=== PATIENT | male | born 1935 | race Caucasian/White ===

== ENCOUNTER 2022-06-04 14:02 | Outpatient (CLI) | payer MEDICARE, BC, SELFPAY ==
[2022-06-04 15:08] LABS: Prothrombin Time 22.2 Seconds
== END 2022-06-04 14:03 | disposition home or self-care (01) ==
PROVIDERS: PCP Internal Medicine; Visit Provider Internal Medicine
DX: Z79.01 Long term (current) use of anticoagulants (principal)
CPT/HCPCS: 85610

== ENCOUNTER 2022-08-21 07:12 | Outpatient (CLI) | payer MEDICARE, BC, SELFPAY | END 2022-08-21 07:13 | disposition home or self-care (01) | LOC: AMB 08-22 12:36 | PROVIDERS: PCP Internal Medicine; Visit Provider Family Medicine | DX: S09.90XA Unspecified injury of head, initial encounter (principal); W18.30XA Fall on same level, unspecified, initial encounter; Y92.003 Bedroom of unspecified non-institutional (private) residence as the place of occurrence of the external cause | CPT/HCPCS: A0425; A0427 ==

== ENCOUNTER 2022-08-21 07:43 | Emergency (ER) | payer MEDICARE, BC, SELFPAY ==
[2022-08-21] VITALS (24 sets, daily range): BP systolic 125–152; BP diastolic 72–95; PULSE 54–79; RESP 18; TEMP 36; O2SAT 94–100
--- NOTE | 2022-08-21 | CT_ITS ---
Patient: SARAY MENENDEZ Facility:?[facility] Patient ID:?[id number] Site Patient ID:?[id number]. Site :?[id number] Study:?CT-Head W/O - CODE TRAUMA-08/21/2022 7:57:49 AM Ordering Physician:Fady Mancuso Final Report: INDICATION: Fall. TECHNIQUE: CT head without contrast. COMPARISON: 01/06/2021. FINDINGS: CSF spaces: Within normal limits for age. Brain parenchyma and extra-axial spaces: The handley-white differentiation is normal. No sign of mass, hemorrhage, or midline shift. No extra-axial fluid collection. Skull base and calvarium: The visualized paranasal sinuses and mastoid air cells demonstrate no acute or significant findings. The visualized orbits are grossly unremarkable. No skull fractures. IMPRESSION: No acute intracranial abnormality. Please note that all CT scans at this facility use dose modulation, iterative reconstruction, and/or weight-based dosing when appropriate to reduce radiation dose to as low as reasonably achievable. Dictated by Saray Eugene MD @ 08/21/2022 8:08:31 AM Signed by:?Saray Eugene MD @08/21/2022 8:08:31 AM (Electronic Signature)
--- NOTE | 2022-08-21 | CT_ITS ---
Patient: SARAY MENENDEZ Facility:?[facility] Patient ID:?[id number] Site Patient ID:?[id number]. Site :?[id number] Study:?CT-Spine Cervical W/O - CODE TRAUMA-08/21/2022 7:58:07 AM Ordering Physician:Fady Mancuso Final Report: INDICATION: Trauma. TECHNIQUE: CT cervical spine without contrast. COMPARISON: None. FINDINGS: Vertebrae: Trace degenerative C4 anterolisthesis. There are no fractures or suspicious bony lesions. Discs and facet joints: There are diffuse degenerative changes in the disc spaces and facet joints. Findings include advanced left-sided facet arthrosis at CT C3, C3-4 and C4-5 and Extraspinal findings: No abnormal prevertebral soft tissue swelling. Carotid atherosclerosis. Biapical lung scarring. IMPRESSION: 1. No sign of acute injury. 2. Multilevel degenerative spondylosis. Please note that all CT scans at this facility use dose modulation, iterative reconstruction, and/or weight-based dosing when appropriate to reduce radiation dose to as low as reasonably achievable. Dictated by Saray Eugene MD @ 08/21/2022 8:13:46 AM Signed by:?Saray Eugene MD @08/21/2022 8:13:46 AM (Electronic Signature)
--- NOTE | 2022-08-21 08:05 | ED.SYNCOPE ---
HPI - Syncope General Date Seen: 08/21/22 <Bartolome Carvajal MD - Last Filed: 08/21/22 08:20> Chief Complaint: Syncope/Fainted <Bartolome Carvajal MD - Last Filed: 08/21/22 08:20> Stated Complaint: Fall <Bartolome Carvajal MD - Last Filed: 08/21/22 08:20> Time Seen by Provider: 08/21/22 08:05 <Bartolome Carvajal MD - Last Filed: 08/21/22 08:20> Source: patient <Bartolome Carvajal MD - Last Filed: 08/21/22 08:20> Mode of arrival: EMS <Bartolome Carvajal MD - Last Filed: 08/21/22 08:20> Limitations: no limitations <Bartolome Carvajal MD - Last Filed: 08/21/22 08:20> History of Present Illness HPI narrative: Patient is an 87-year-old gentleman who was brought in as are red trauma, he was standing at home helping his make the bed, when he became dizzy and passed out falling backwards hitting his head, there is loss of conscious for approximately a few seconds, he then came to, he did complain of a headache, and also some mild neck discomfort. He is brought in by EMS with the neck protection, no complaints of nausea vomiting he did not have chest pain there is no feeling of his heart racing or going to slow with this. Otherwise felt fine, no history of any sickness, diarrhea dysuria frequency. 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 [employer], <Bartolome Carvajal MD - Last Filed: 08/21/22 08:20> MD complaint: loss of consciousness <Bartolome Carvajal MD - Last Filed: 08/21/22 08:20> Onset (ago): minute(s) <Bartolome Carvajal MD - Last Filed: 08/21/22 08:20> Duration of episode: 5 <Bartolome Carvajal MD - Last Filed: 08/21/22 08:20> -: second(s) <Bartolome Carvajal MD - Last Filed: 08/21/22 08:20> Prodromal symptoms: none <Bartolome Carvajal MD - Last Filed: 08/21/22 08:20> Witnessed: Yes - by Bystander <Bartolome Carvajal MD - Last Filed: 08/21/22 08:20> Context: standing up <Bartolome Carvajal MD - Last Filed: 08/21/22 08:20> Injuries sustained associated with event: neck and head <Bartolome Carvajal MD - Last Filed: 08/21/22 08:20> Current symptoms: headache <Bartolome Carvajal MD - Last Filed: 08/21/22 08:20> Treatments prior to arrival: none <Bartolome Carvajal MD - Last Filed: 08/21/22 08:20> Related Data Home Medications: Previous Rx's Medication Instructions Recorded warfarin 5 mg tablet 5 mg PO QDAY Atrial Fibrillation 03/27/22 #90 tabs metoprolol succinate 25 mg 25 mg PO QDAY #90 tabs 06/17/22 tablet,extended release 24 hr tamsulosin 0.4 mg capsule 0.4 mg PO QDAY #90 caps 07/11/22 <Bartolome Carvajal MD - Last Filed: 08/21/22 08:20> Allergies/Adverse Reactions: Allergies Allergy/AdvReac Type Severity Reaction Status Date / Time No Known Drug Allergies Allergy Verified 08/21/22 08:10 <Bartolome Carvajal MD - Last Filed: 08/21/22 08:20> Review of Systems Status of ROS: Reports: 10 or more systems reviewed and unremarkable except as noted in History and below <Bartolome Carvajal MD - Last Filed: 08/21/22 08:20> [facility] Medical History: Medical History (Updated 08/21/22 @ 09:50 by Amanda Randall MD) Atrial fibrillation <Bartolome Carvajal MD - Last Filed: 08/21/22 08:20> Surgical History: Surgical History (Updated 08/21/22 @ 09:34 by Cinthya Jordan RN) History of total replacement of both hip joints <Bartolome Carvajal MD - Last Filed: 08/21/22 08:20> Social History: Social History Smoking Status: Former smoker Do you use any of these nicotine containing products: None How often do you have a drink containing alcohol: 4 or more times a week How many standard drinks containing alcohol do you have on a typical day: 3 or 4 How often do you have six or more drinks on one occasion: Daily or almost daily AUDIT-C Alcohol total score: 9 Non-prescribed substance use: denies use <Bartolome Carvajal MD - Last Filed: 08/21/22 08:20> Exam Narrative: Exam Narrative: Patient is seen and stabilization room 1, after being met in the hallway by myself, and sent to the CT scanner. He is alert oriented x3 in no apparent distress, no current complaints, pupils are equal round reactive to light his TMs are normal, his oropharynx is normal, neck has good flexion and extension, no tenderness to palpation over C-spine is collar is removed. Carotid upstrokes are equal bilaterally, heart sounds are normal abdomen is soft there is no guarding, hips have normal range of motion bilaterally with no tenderness to palpation, is able sit up for me is good air entry bilaterally no palpable tenderness noted over his lumbar thoracic or cervical spine. Rhythm seems irregularly irregular consistent with atrial fibrillation. <Bartolome Carvajal MD - Last Filed: 08/21/22 08:20> Const: Vital Signs, click to edit/add: Vital Signs - 24 hr 08/21/22 08:43 08/21/22 08:46 08/21/22 08:50 Temperature Pulse Rate 54 L 63 60 Pulse Rate [Right Pulse Oximeter] Respiratory Rate Blood Pressure 125/72 Blood Pressure [Ri ght Upper Arm] Pulse Oximetry 97 98 97 Oxygen Delivery Me thod 08/21/22 08:52 08/21/22 09:00 08/21/22 09:01 Temperature Pulse Rate 59 L 55 L 58 L Pulse Rate [Right Pulse Oximeter] Respiratory Rate Blood Pressure 131/93 H 137/85 Blood Pressure [Ri ght Upper Arm] Pulse Oximetry 97 100 99 Oxygen Delivery Me thod 08/21/22 09:10 08/21/22 09:12 08/21/22 09:20 Temperature Pulse Rate 67 60 Pulse Rate [Right Pulse Oximeter] Respiratory Rate Blood Pressure 143/85 H Blood Pressure [Ri ght Upper Arm] Pulse Oximetry 97 100 Oxygen Delivery Me thod 08/21/22 09:22 08/21/22 07:43 Temperature 96.8 F L Pulse Rate 65 Pulse Rate [Right Pulse Oximeter] 79 Respiratory Rate 18 Blood Pressure 137/92 H Blood Pressure [Ri ght Upper Arm] 152/83 H Pulse Oximetry 99 98 Oxygen Delivery Me thod Room Air <Bartolome Carvajal MD - Last Filed: 08/21/22 08:20> Vital Signs, click to edit/add: Vital Signs - 24 hr 08/21/22 08:43 08/21/22 08:46 08/21/22 08:50 Temperature Pulse Rate 54 L 63 60 Pulse Rate [Right Pulse Oximeter] Respiratory Rate Blood Pressure 125/72 Blood Pressure [Ri ght Upper Arm] Pulse Oximetry 97 98 97 Oxygen Delivery Me thod 08/21/22 08:52 08/21/22 09:00 08/21/22 09:01 Temperature Pulse Rate 59 L 55 L 58 L Pulse Rate [Right Pulse Oximeter] Respiratory Rate Blood Pressure 131/93 H 137/85 Blood Pressure [Ri ght Upper Arm] Pulse Oximetry 97 100 99 Oxygen Delivery Me thod 08/21/22 09:10 08/21/22 09:12 08/21/22 09:20 Temperature Pulse Rate 67 60 Pulse Rate [Right Pulse Oximeter] Respiratory Rate Blood Pressure 143/85 H Blood Pressure [Ri ght Upper Arm] Pulse Oximetry 97 100 Oxygen Delivery Me thod 08/21/22 09:22 08/21/22 07:43 Temperature 96.8 F L Pulse Rate 65 Pulse Rate [Right Pulse Oximeter] 79 Respiratory Rate 18 Blood Pressure 137/92 H Blood Pressure [Ri ght Upper Arm] 152/83 H Pulse Oximetry 99 98 Oxygen Delivery Me thod Room Air <Amanda Randall MD - Last Filed: 08/21/22 09:50> Documenting provider has reviewed patient's vital signs: yes <Bartolome Carvajal MD - Last Filed: 08/21/22 08:20> Course Course Hospital Course: IV was established, fluids were started. Patient proceeded to head and neck CT, both of which were unremarkable. Labs showed unremarkable CBC with a slightly low hemoglobin at 13.1. INR in the therapeutic range at 2.57. D-dimer slightly abnormal at 0.58. Sodium was low at 129. Remainder of electrolytes and chemistries entirely normal. Normal troponin. EKG showing atrial fibrillation with a pulse of 54. Patient's pulse did fluctuate between 50 and 60 while he was here, with PVCs. Negative COVID, influenza and RSV. Patient remained asymptomatic throughout his workup. He denies having headache or any neurologic deficits. At this time we discussed sending him home with a Holter monitor. There is certainly a possibility that his mouth bradycardia could be contributing to his symptoms. <Bartolome Carvajal MD - Last Filed: 08/21/22 08:20> Vital Signs Vital signs: Initial Vital Signs Temperature 96.8 F L 08/21/22 07:43 Temperature Source Temporal Artery Scan 08/21/22 07:43 Pulse Rate 79 08/21/22 07:43 Respiratory Rate 18 08/21/22 07:43 Blood Pressure 152/83 H 08/21/22 07:43 Blood Pressure Mean 106 08/21/22 07:43 Blood Pressure Position Sitting 08/21/22 07:43 Pulse Oximetry 98 08/21/22 07:43 Oxygen Delivery Method 08/21/22 07:43 Vital Signs Temperature 96.8 F L 08/21/22 07:43 Pulse Rate 79 08/21/22 07:43 Respiratory Rate 18 08/21/22 07:43 Blood Pressure 152/83 H 08/21/22 07:43 Pulse Oximetry 98 08/21/22 07:43 Oxygen Delivery Method 08/21/22 07:43 Temperature 96.8 F L 08/21/22 07:43 Pulse Rate 65 08/21/22 09:22 Respiratory Rate 18 08/21/22 07:43 Blood Pressure 137/92 H 08/21/22 09:22 Pulse Oximetry 99 08/21/22 09:22 Oxygen Delivery Method 08/21/22 07:43 <Bartolome Carvajal MD - Last Filed: 08/21/22 08:20> Initial Vital Signs Temperature 96.8 F L 08/21/22 07:43 Temperature Source Temporal Artery Scan 08/21/22 07:43 Pulse Rate 79 08/21/22 07:43 Respiratory Rate 18 08/21/22 07:43 Blood Pressure 152/83 H 08/21/22 07:43 Blood Pressure Mean 106 08/21/22 07:43 Blood Pressure Position Sitting 08/21/22 07:43 Pulse Oximetry 98 08/21/22 07:43 Oxygen Delivery Method 08/21/22 07:43 Vital Signs Temperature 96.8 F L 08/21/22 07:43 Pulse Rate 79 08/21/22 07:43 Respiratory Rate 18 08/21/22 07:43 Blood Pressure 152/83 H 08/21/22 07:43 Pulse Oximetry 98 08/21/22 07:43 Oxygen Delivery Method 08/21/22 07:43 Temperature 96.8 F L 08/21/22 07:43 Pulse Rate 65 08/21/22 09:22 Respiratory Rate 18 08/21/22 07:43 Blood Pressure 137/92 H 08/21/22 09:22 Pulse Oximetry 99 08/21/22 09:22 Oxygen Delivery Method 08/21/22 07:43 <Amanda Randall MD - Last Filed: 08/21/22 09:50> MDM - Syncope MDM Narrative Medical decision making narrative: Life-threatening differential diagnosis considered include: Cardiac arrhythmia, acute blood loss, and intracranial bleed. Other differential diagnosis include but are not limited to vasovagal syncope, orthostatic syncope, seizure, as well as other etiologies I explained to we will do labs give him some IV fluids, troponin, and do a head and neck CT. He will be signed over to the [facility] ER physician <Bartolome Carvajal MD - Last Filed: 08/21/22 08:20> Life-threatening differential diagnosis considered include: Cardiac arrhythmia, acute blood loss, and intracranial bleed. Other differential diagnosis include but are not limited to vasovagal syncope, orthostatic syncope, seizure, as well as other etiologies I explained to we will do labs give him some IV fluids, troponin, and do a head and neck CT. He will be signed over to the oncoming ER physician At this time patient will be discharged home with a 24 hour Holter. He will follow up with primary care provider early next week. Return to the ER if symptoms recur or he develops new concerning symptoms such as chest pain, shortness of breath, focal neurologic deficits. Patient and were agreeable with everything we discussed and had no other questions. <Amanda Randall MD - Last Filed: 08/21/22 09:50> Medical Records Attestation: I reviewed the patient's medical records. <Bartolome Carvajal MD - Last Filed: 08/21/22 08:20> Lab Data Attestation: I reviewed the patient's lab results. <Amanda Randall MD - Last Filed: 08/21/22 09:50> Labs: Lab Results 08/21/22 08/21/22 08/21/22 Range/Units 08:00 08:00 08:00 WBC 5.16 (4.50-11.00) K/uL RBC 3.99 L (4.30-5.90) m/uL Hgb 13.1 L (13.5-17.5) gm/dL Hct 37.6 (37.0-53.0) % MCV 94 (80-100) fL MCH 33 (26-34) pg MCHC 35 (32-36) gm/dL RDW Coeff of [place] 12.7 (11.5-15.5) % Plt Count 186 (140-440) K/uL Neut % (Auto) 43.4 (42.0-72.0) % Lymph % (Auto) 36.0 (20-44) % [place] % (Auto) 15.9 H (0.0-11.0) % Eos % (Auto) 3.9 (0.0-7.0) % Baso % (Auto) 0.6 (0.0-3.0) % Neut # (Auto) 2.24 (1.7-7.0) K/uL Lymph # (Auto) 1.86 (0.90-2.90) K/uL [place] # (Auto) 0.80 (0.00-0.90) K/UL Eos # (Auto) 0.20 (0.00-0.50) K/uL Baso # (Auto) 0.03 (0.00-0.30) K/uL INR 2.57 H (0.91-1.10) APTT 43 H (23-33) Seconds D-Dimer Quant (PE/DVT) 0.58 H (0.00-0.50) ug/ml Sodium 129 L (135-149) mmol/L Potassium 4.1 (3.6-5.1) mmol/L Chloride 98 (96-114) mmol/L Carbon Dioxide 26 (20-32) mmol/L BUN 15 (7-30) mg/dL Creatinine 0.7 (0.5-1.5) mg/dL Estimated GFR 90 ml/min Glucose 99 (60-115) mg/dL Calcium 9.6 (8.4-10.6) mg/dL Troponin I (0.01-0.04) ng/mL NT-Pro-B Natriuret Pep pg/mL SARS-CoV-2 (PCR) (Negative) Influenza Type A (PCR) (Negative) Influenza Type B (PCR) (Negative) RSV (PCR) (Negative) 08/21/22 08/21/22 Range/Units 08:00 08:20 WBC (4.50-11.00) K/uL RBC (4.30-5.90) m/uL Hgb (13.5-17.5) gm/dL Hct (37.0-53.0) % MCV (80-100) fL MCH (26-34) pg MCHC (32-36) gm/dL RDW Coeff of [place] (11.5-15.5) % Plt Count (140-440) K/uL Neut % (Auto) (42.0-72.0) % Lymph % (Auto) (20-44) % [place] % (Auto) (0.0-11.0) % Eos % (Auto) (0.0-7.0) % Baso % (Auto) (0.0-3.0) % Neut # (Auto) (1.7-7.0) K/uL Lymph # (Auto) (0.90-2.90) K/uL [place] # (Auto) (0.00-0.90) K/UL Eos # (Auto) (0.00-0.50) K/uL Baso # (Auto) (0.00-0.30) K/uL INR (0.91-1.10) APTT (23-33) Seconds D-Dimer Quant (PE/DVT) (0.00-0.50) ug/ml Sodium (135-149) mmol/L Potassium (3.6-5.1) mmol/L Chloride (96-114) mmol/L Carbon Dioxide (20-32) mmol/L BUN (7-30) mg/dL Creatinine (0.5-1.5) mg/dL Estimated GFR ml/min Glucose (60-115) mg/dL Calcium (8.4-10.6) mg/dL Troponin I 0.01 (0.01-0.04) ng/mL NT-Pro-B Natriuret Pep 1220 pg/mL SARS-CoV-2 (PCR) Negative SARS-CoV-2 (Negative) Influenza Type A (PCR) Negative PCR FLU A (Negative) Influenza Type B (PCR) Negative PCR FLU B (Negative) RSV (PCR) Negative PCR RSV (Negative) <Bartolome Carvajal MD - Last Filed: 08/21/22 08:20> Lab Results 08/21/22 08/21/22 08/21/22 Range/Units 08:00 08:00 08:00 WBC 5.16 (4.50-11.00) K/uL RBC 3.99 L (4.30-5.90) m/uL Hgb 13.1 L (13.5-17.5) gm/dL Hct 37.6 (37.0-53.0) % MCV 94 (80-100) fL MCH 33 (26-34) pg MCHC 35 (32-36) gm/dL RDW Coeff of [place] 12.7 (11.5-15.5) % Plt Count 186 (140-440) K/uL Neut % (Auto) 43.4 (42.0-72.0) % Lymph % (Auto) 36.0 (20-44) % [place] % (Auto) 15.9 H (0.0-11.0) % Eos % (Auto) 3.9 (0.0-7.0) % Baso % (Auto) 0.6 (0.0-3.0) % Neut # (Auto) 2.24 (1.7-7.0) K/uL Lymph # (Auto) 1.86 (0.90-2.90) K/uL [place] # (Auto) 0.80 (0.00-0.90) K/UL Eos # (Auto) 0.20 (0.00-0.50) K/uL Baso # (Auto) 0.03 (0.00-0.30) K/uL INR 2.57 H (0.91-1.10) APTT 43 H (23-33) Seconds D-Dimer Quant (PE/DVT) 0.58 H (0.00-0.50) ug/ml Sodium 129 L (135-149) mmol/L Potassium 4.1 (3.6-5.1) mmol/L Chloride 98 (96-114) mmol/L Carbon Dioxide 26 (20-32) mmol/L BUN 15 (7-30) mg/dL Creatinine 0.7 (0.5-1.5) mg/dL Estimated GFR 90 ml/min Glucose 99 (60-115) mg/dL Calcium 9.6 (8.4-10.6) mg/dL Troponin I (0.01-0.04) ng/mL NT-Pro-B Natriuret Pep pg/mL SARS-CoV-2 (PCR) (Negative) Influenza Type A (PCR) (Negative) Influenza Type B (PCR) (Negative) RSV (PCR) (Negative) 08/21/22 08/21/22 Range/Units 08:00 08:20 WBC (4.50-11.00) K/uL RBC (4.30-5.90) m/uL Hgb (13.5-17.5) gm/dL Hct (37.0-53.0) % MCV (80-100) fL MCH (26-34) pg MCHC (32-36) gm/dL RDW Coeff of [place] (11.5-15.5) % Plt Count (140-440) K/uL Neut % (Auto) (42.0-72.0) % Lymph % (Auto) (20-44) % [place] % (Auto) (0.0-11.0) % Eos % (Auto) (0.0-7.0) % Baso % (Auto) (0.0-3.0) % Neut # (Auto) (1.7-7.0) K/uL Lymph # (Auto) (0.90-2.90) K/uL [place] # (Auto) (0.00-0.90) K/UL Eos # (Auto) (0.00-0.50) K/uL Baso # (Auto) (0.00-0.30) K/uL INR (0.91-1.10) APTT (23-33) Seconds D-Dimer Quant (PE/DVT) (0.00-0.50) ug/ml Sodium (135-149) mmol/L Potassium (3.6-5.1) mmol/L Chloride (96-114) mmol/L Carbon Dioxide (20-32) mmol/L BUN (7-30) mg/dL Creatinine (0.5-1.5) mg/dL Estimated GFR ml/min Glucose (60-115) mg/dL Calcium (8.4-10.6) mg/dL Troponin I 0.01 (0.01-0.04) ng/mL NT-Pro-B Natriuret Pep 1220 pg/mL SARS-CoV-2 (PCR) Negative SARS-CoV-2 (Negative) Influenza Type A (PCR) Negative PCR FLU A (Negative) Influenza Type B (PCR) Negative PCR FLU B (Negative) RSV (PCR) Negative PCR RSV (Negative) <Amanda Randall MD - Last Filed: 08/21/22 09:50> Imaging Data CT scan - head: Attestation: I have reviewed the pertinent imaging results. <Amanda Randall MD - Last Filed: 08/21/22 09:50> Radiologist's impression: CT head without contrast. COMPARISON: 01/06/2021. FINDINGS: CSF spaces: Within normal limits for age. Brain parenchyma and extra-axial spaces: The handley-white differentiation is normal. No sign of mass, hemorrhage, or midline shift. No extra-axial fluid collection. Skull base and calvarium: The visualized paranasal sinuses and mastoid air cells demonstrate no acute or significant findings. The visualized orbits are grossly unremarkable. No skull fractures. IMPRESSION: No acute intracranial abnormality. <Amanda Randall MD - Last Filed: 08/21/22 09:50> CT cervical spine: Attestation: I have reviewed the pertinent imaging results. <Amanda Randall MD - Last Filed: 08/21/22 09:50> Radiologist's impression: CT cervical spine without contrast. COMPARISON: None. FINDINGS: Vertebrae: Trace degenerative C4 anterolisthesis. There are no fractures or suspicious bony lesions. Discs and facet joints: There are diffuse degenerative changes in the disc spaces and facet joints. Findings include advanced left-sided facet arthrosis at CT C3, C3-4 and C4-5 and Extraspinal findings: No abnormal prevertebral soft tissue swelling. Carotid atherosclerosis. Biapical lung scarring. IMPRESSION: 1. No sign of acute injury. 2. Multilevel degenerative spondylosis. <Amanda Randall MD - Last Filed: 08/21/22 09:50> ECG Data Attestation: I personally reviewed and interpreted this ECG as follows: <Bartolome Carvajal MD - Last Filed: 08/21/22 08:20> ECG interpretation date: 08/21/22 <Bartolome Carvajal MD - Last Filed: 08/21/22 08:20> Prior ECG tracings: not available for review <Bartolome Carvajal MD - Last Filed: 08/21/22 08:20> Interpretation: EKG shows atrial fibrillation with ventricular rate of 54, QRS is 108 milliseconds, QT is [address] wave changes notable. <Bartolome Carvajal MD - Last Filed: 08/21/22 08:20> Discharge Plan Discharge Clinical Impression: Syncope <Bartolome Carvajal MD - Last Filed: 08/21/22 08:20> Condition: Stable <Bartolome Carvajal MD - Last Filed: 08/21/22 08:20> Additional Instructions: You will be sent home today with a 24 hour heart monitor. You should follow-up with your primary care provider early next week to go over the results of your heart monitor. Over the weekend, I would recommend you cut your metoprolol dose in half. Return to the ER if you develop chest pain, shortness of breath, vomiting, slurred speech or weakness of any extremity. <Bartolome Carvajal MD - Last Filed: 08/21/22 08:20> Prescriptions: No Action warfarin 5 mg tablet 5 mg PO QDAY Qty: 90 3RF Protocol: Dose Management Condition: Thursday Dose/Route: 5 % Instruction: 1 x 5 % tablet Condition: Thursday Dose/Route: 5 % Instruction: 1 x 5 % tablet Condition: Thursday Dose/Route: 5 % Instruction: 1 x 5 % tablet Condition: Thursday Dose/Route: 5 % Instruction: 1 x 5 % tablet Condition: Dose/Route: 5 % Instruction: 1 x 5 % tablet Condition: Thursday Dose/Route: 5 % Instruction: 1 x 5 % tablet Condition: Thursday Dose/Route: 5 % Instruction: 1 x 5 % tablet Protocol Text: Adjustment Start Date: Thursday07/22/22 INR Value: 2.7 INR Date: 07/22/22 Recheck Date: 08/19/22 metoprolol succinate 25 mg tablet extended release 24 hr 25 mg PO QDAY Qty: 90 1RF tamsulosin 0.4 mg capsule 0.4 mg PO QDAY Qty: 90 1RF <Bartolome Carvajal MD - Last Filed: 08/21/22 08:20> Follow Up/Referrals: Raudel Rodas MD [Primary Care Provider] - <Bartolome Carvajal MD - Last Filed: 08/21/22 08:20> Stand Alone Forms: [facility] Info Instructions <Bartolome Carvajal MD - Last Filed: 08/21/22 08:20>
[2022-08-21 08:25] LABS: Basophils Absolute Auto 0.03 K/uL (0.00-0.30); Basophils Percent Auto 0.6 % (0.0-3.0); Eosinophils Percent Auto 3.9 % (0.0-7.0); Hematocrit 37.6 % (37.0-53.0); Hemoglobin* 13.1 gm/dL (13.5-17.5); Immature Granulocytes Abs Auto 0.01 K/uL (0.00-0.30); Immature Granulocytes Pct Auto 0.2 %; Lymphocytes Absolute Auto 1.86 K/uL (0.90-2.90); Mean Corpuscular HGB Conc 35 gm/dL (32-36); Mean Corpuscular Hemoglobin 33 pg (26-34); Mean Corpuscular Volume 94 fL (80-100); Monocytes Percent Auto 15.9 % (0.0-11.0); Neutrophils Absolute Auto 2.24 K/uL (1.7-7.0); Neutrophils Percent Auto 43.4 % (42.0-72.0); Platelet Count* 186 K/uL (140-440); RDW Coefficient of Variation % 12.7 % (11.5-15.5); Red Blood Count 3.99 m/uL (4.30-5.90); White Blood Count* 5.16 K/uL (4.50-11.00)
[2022-08-21 08:27] LABS: Slide Review Reflex No
[2022-08-21] MEDS: 0.9 % SODIUM CHLORIDE 1000 ml 1,000 ML IV (08:29)
[2022-08-21 08:40] LABS: Chloride* 98 mmol/L (96-114); Potassium* 4.1 mmol/L (3.6-5.1); Sodium* 129 mmol/L (135-149)
[2022-08-21 08:42] LABS: Creatinine* 0.7 mg/dL (0.5-1.5); Estimated Glomerular Filt Rate 90 ml/min; INR 2.57 (0.91-1.10); Prothrombin Time 28.9 Seconds
[2022-08-21 08:43] LABS: Blood Urea Nitrogen* 15 mg/dL (7-30); Calcium* 9.6 mg/dL (8.4-10.6); Carbon Dioxide* 26 mmol/L (20-32); Glucose* 99 mg/dL (60-115); Partial Thromboplastin Time* 43 Seconds (23-33)
[2022-08-21 08:45] LABS: D Dimer Quantitative* 0.58 ug/ml (0.00-0.50)
[2022-08-21 08:55] LABS: Troponin I* 0.01 ng/mL (0.01-0.04)
[2022-08-21 08:56] LABS: NT Pro B Type NatriureticPept* 1220 pg/mL
[2022-08-21 09:24] LABS: PCR FLU A Negative PCR FLU A (Negative); PCR FLU B Negative PCR FLU B (Negative); PCR RSV Negative PCR RSV (Negative)
[2022-08-21 09:25] LABS: SARS PCR* Negative SARS-CoV-2 (Negative)
== END 2022-08-21 11:01 | disposition home or self-care (01) ==
PROVIDERS: Family Medicine; Emergency Provider Family Medicine; PCP Internal Medicine
DX: R55 Syncope and collapse (principal); S09.90XA Unspecified injury of head, initial encounter
CPT/HCPCS: 36415; 70450; 72125; 80048; 83880; 84484; 85025; 85379; 85610; 85730; 87502; 87634; 87635; 93005; 93225; 93226; 99284; 99285; 99291; G0390; J7030

== ENCOUNTER 2022-08-26 13:12 | Outpatient (CLI) | payer MEDICARE, BC, SELFPAY ==
[2022-08-26 14:25] LABS: Albumin* 4.2 g/dL (3.3-5.0); Chloride* 95 mmol/L (96-114)
[2022-08-26 14:26] LABS: Sodium* 130 mmol/L (135-149)
[2022-08-26 14:28] LABS: Alkaline Phosphatase* 74 U/L (40-150); Aspartate Amino Transferase* 32 U/L (12-35); Bilirubin Total* 1.4 mg/dL (0.1-1.5); Blood Urea Nitrogen* 15 mg/dL (7-30); Carbon Dioxide* 27 mmol/L (20-32); Creatine Kinase* 70 U/L (54-186); Creatinine* 0.7 mg/dL (0.5-1.5); Estimated Glomerular Filt Rate 90 ml/min
[2022-08-26 14:29] LABS: Alanine Aminotransferase* 25 U/L (4-50); Glucose* 92 mg/dL (60-115)
== END 2022-08-26 13:13 | disposition home or self-care (01) ==
PROVIDERS: PCP Internal Medicine; Visit Provider Internal Medicine
DX: R55 Syncope and collapse (principal)
CPT/HCPCS: 80053; 82550

== ENCOUNTER 2022-09-11 01:15 | Emergency (ER) | payer MEDICARE, BC, SELFPAY ==
[2022-09-11] VITALS (10 sets, daily range): BP systolic 122–163; BP diastolic 71–100; PULSE 53–72; RESP 16; TEMP 36.2; O2SAT 95–99
[2022-09-11 02:31] LABS: Chloride* 96 mmol/L (96-114); Sodium* 127 mmol/L (135-149)
[2022-09-11 02:33] LABS: Creatinine* 0.6 mg/dL (0.5-1.5); Estimated Glomerular Filt Rate 95 ml/min; INR 2.33 (0.91-1.10); Prothrombin Time 26.7 Seconds
[2022-09-11 02:34] LABS: Blood Urea Nitrogen* 16 mg/dL (7-30); Carbon Dioxide* 25 mmol/L (20-32)
[2022-09-11 02:35] LABS: Calcium* 9.3 mg/dL (8.4-10.6); Glucose* 98 mg/dL (60-115)
[2022-09-11 02:36] LABS: D Dimer Quantitative* 0.47 ug/ml (0.00-0.50)
[2022-09-11 02:43] LABS: C Reactive Protein* < 0.5 mg/dL (0.5-1.0)
[2022-09-11 02:56] LABS: Troponin I* < 0.01 ng/mL (0.01-0.04)
--- NOTE | 2022-09-11 07:34 | ED.GENADULT ---
HPI - General Adult General Chief complaint: Syncope/Fainted Stated complaint: had a couple fainting spells Time Seen by Provider: 09/11/22 01:39 History of Present Illness HPI narrative: 87-year-old man presenting to the emergency department accompanied by spouse with concern of another potentially syncopal event or possibly seizure. He had gotten up to use the restroom return to bed believes he fell asleep then found himself to be shaking and noted he was also moaning. They are not describing a postictal state. Does not have headaches. No fevers or would not describe these as elodia rigors. No history of seizures personal or family. Is not nauseated. No chest pain or shortness of breath. No focal weakness or loss of sensation is noted. No palpitations beyond usual in state of atrial fibrillation. Anticoagulated sounds like with pretty steady INR with Coumadin. August 21 apparently was helping make the bed and per my read of records sounds like an orthostatic syncopal event where he did fall and have closed head injury as well. Since that time has been experiencing some dizziness per follow-up on August 26 notes. Chronic hyponatremia. Just feels like needs to be cautious at this point. Did have a Holter monitor placed in follow-up. Sounds like PVCs have been discovered. Related Data Previous Rx's Medication Instructions Recorded warfarin 5 mg tablet 5 mg PO QDAY Atrial Fibrillation 03/27/22 #90 tabs tamsulosin 0.4 mg capsule 0.4 mg PO QDAY #90 caps 07/11/22 metoprolol succinate 50 mg capsule 50 mg PO QDAY Hypertension #90 ea 08/28/22 sprinkle, ext. 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 NAD. Skin is warm and dry. Cranial nerves 2-12 look to be intact. Breathing easily. Fully alert. Speaking fluidly. Has no nystagmus. Normal [id number]. Well perfused peripherally. No weakness appreciated. Trace pretibial lower extremity dependent edema. Lungs appear to be clear. Heart in an irregularly irregular rhythm. Oropharynx is moist. No trauma apparent. Abdomen is soft and nontender no masses appreciated. Const: Vital Signs, click to edit/add: Vital Signs - 24 hr 09/11/22 01:21 09/11/22 01:49 09/11/22 01:39 Temperature 97.1 F L Pulse Rate 64 Pulse Rate [Left P ulse Oximeter] 72 Respiratory Rate 16 Blood Pressure Blood Pressure [Ri ght Upper Arm] 163/100 H Pulse Oximetry 98 99 99 Oxygen Delivery Me thod Room Air 09/11/22 02:00 09/11/22 02:01 09/11/22 02:02 Temperature Pulse Rate 58 L 57 L 61 Pulse Rate [Left P ulse Oximeter] Respiratory Rate Blood Pressure 133/78 Blood Pressure [Ri ght Upper Arm] Pulse Oximetry 97 96 96 Oxygen Delivery Me thod 09/11/22 02:30 09/11/22 02:31 09/11/22 03:00 Temperature Pulse Rate 53 L 59 L 58 L Pulse Rate [Left P ulse Oximeter] Respiratory Rate Blood Pressure 122/71 Blood Pressure [Ri ght Upper Arm] Pulse Oximetry 95 95 96 Oxygen Delivery Me thod 09/11/22 03:02 Temperature Pulse Rate Pulse Rate [Left P ulse Oximeter] Respiratory Rate Blood Pressure 142/84 H Blood Pressure [Ri ght Upper Arm] Pulse Oximetry Oxygen Delivery Ut thod Documenting provider has reviewed patient's vital signs: yes Course Vital Signs Vital signs: Initial Vital Signs Temperature 97.1 F L 09/11/22 01:21 Temperature Source Temporal Artery Scan 09/11/22 01:21 Pulse Rate 72 09/11/22 01:21 Pulse Rhythm 09/11/22 01:21 Respiratory Rate 16 09/11/22 01:21 Blood Pressure 163/100 H 09/11/22 01:21 Blood Pressure Mean 121 09/11/22 01:21 Blood Pressure Position Semi-Fowlers 09/11/22 01:21 Pulse Oximetry 98 09/11/22 01:21 Oxygen Delivery Method 09/11/22 01:21 Vital Signs Temperature 97.1 F L 09/11/22 01:21 Pulse Rate 72 09/11/22 01:21 Respiratory Rate 16 09/11/22 01:21 Blood Pressure 163/100 H 09/11/22 01:21 Pulse Oximetry 98 09/11/22 01:21 Oxygen Delivery Method 09/11/22 01:21 Temperature 97.1 F L 09/11/22 01:21 Pulse Rate 58 L 09/11/22 03:00 Respiratory Rate 16 09/11/22 01:21 Blood Pressure 142/84 H 09/11/22 03:02 Pulse Oximetry 96 09/11/22 03:00 Oxygen Delivery Method 09/11/22 01:21 Medical Decision Making MDM Narrative Medical decision making narrative: This does not sound precisely like seizure here. Certainly complicated by recent head injury. I discussed that I think would be unlikely to be able to discern cause here unfortunately. Challenge being in that very weak/sleep state as well. Has had relatively recent head imaging. Does have pending Cardiology evaluation. I think more the question as to what's going on would be one for Neurology more than Cardiology. Wonder also if this might be some extension of post concussive syndrome. Is monitored on vascular neurologist without event in the emergency department other than usual atrial fibrillation. Labs remarkable only for sodium of 127. Prior was 129 and 130. 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 Is disinclined to act on it at this time. My concern would be that this continues to drift. I did offer some repletion but this understandably was declined/deferred. Lab Data Lab results reviewed: Yes I reviewed the patient's lab results Labs: Lab Results 09/11/22 09/11/22 09/11/22 Range/Units 01:49 02:10 02:10 Hgb (13.5-17.5) gm/dL INR 2.33 H (0.91-1.10) D-Dimer Quant (PE/DVT) 0.47 (0.00-0.50) ug/ml Sodium 127 L (135-149) mmol/L Potassium 4.0 (3.6-5.1) mmol/L Chloride 96 (96-114) mmol/L Carbon Dioxide 25 (20-32) mmol/L BUN 16 (7-30) mg/dL Creatinine 0.6 (0.5-1.5) mg/dL Estimated GFR 95 ml/min Glucose 98 (60-115) mg/dL Calcium 9.3 (8.4-10.6) mg/dL Troponin I < 0.01 L (0.01-0.04) ng/mL C-Reactive Protein < 0.5 L (0.5-1.0) mg/dL POC Troponin I 0.00 L (0.01-0.04) ng/ml 09/11/22 Range/Units 02:10 Hgb 12.0 L (13.5-17.5) gm/dL INR (0.91-1.10) D-Dimer Quant (PE/DVT) (0.00-0.50) ug/ml Sodium (135-149) mmol/L Potassium (3.6-5.1) mmol/L Chloride (96-114) mmol/L Carbon Dioxide (20-32) mmol/L BUN (7-30) mg/dL Creatinine (0.5-1.5) mg/dL Estimated GFR ml/min Glucose (60-115) mg/dL Calcium (8.4-10.6) mg/dL Troponin I (0.01-0.04) ng/mL C-Reactive Protein (0.5-1.0) mg/dL POC Troponin I (0.01-0.04) ng/ml ECG Data Attestation: I personally reviewed and interpreted this ECG as follows: (Atrial fibrillation rate of 71) Discharge Plan Discharge Clinical Impression: Episode of shaking, Chronic hyponatremia Patient Disposition: Home w/ Parent or Adult Condition: Stable Additional Instructions: It would be nice to find some answers to these episodes but at the same time would indicate perhaps that there is more of a problem. Maybe some clarity will be obtained in your follow-up with Cardiology. Probably a good idea to recheck labs and see where that sodium has landed in a couple of weeks. Otherwise, return for syncope particularly not associated with any orthostatic maneuver, severe headache, new and focal weakness, associated fever. I wonder if what might be going on at this point is post concussive syndrome on the heels of an orthostatic event. Prescriptions: No Action warfarin 5 mg tablet 5 mg PO QDAY Qty: 90 3RF Protocol: Dose Management Condition: Thursday Dose/Route: 5 % Instruction: 1 x 5 % tablet Condition: Thursday Dose/Route: 5 % Instruction: 1 x 5 % tablet Condition: Thursday Dose/Route: 5 % Instruction: 1 x 5 % tablet Condition: Thursday Dose/Route: 5 % Instruction: 1 x 5 % tablet Condition: Dose/Route: 5 % Instruction: 1 x 5 % tablet Condition: Thursday Dose/Route: 5 % Instruction: 1 x 5 % tablet Condition: Thursday Dose/Route: 5 % Instruction: 1 x 5 % tablet Protocol Text: Adjustment Start Date: Thursday07/22/22 INR Value: 2.7 INR Date: 07/22/22 Recheck Date: 08/19/22 tamsulosin 0.4 mg capsule 0.4 mg PO QDAY Qty: 90 1RF metoprolol succinate 50 mg capsule,sprinkle,ER 24hr 50 mg PO QDAY Qty: 90 3RF atorvastatin 40 mg tablet 40 mg PO QDAY Qty: 90 0RF Follow Up/Referrals: Raudel Rodas MD [Primary Care Provider] - Stand Alone Forms: [employer] Info Instructions
== END 2022-09-11 03:10 | disposition home or self-care (01) ==
PROVIDERS: Emergency Provider Family Medicine; PCP Internal Medicine
DX: R25.8 Other abnormal involuntary movements (principal); E87.1 Hypo-osmolality and hyponatremia
CPT/HCPCS: 36415; 80048; 81001; 84484; 85018; 85379; 85610; 86140; 94761; 99283; 99284

== ENCOUNTER 2022-09-12 09:58 | Outpatient (CLI) | payer MEDICARE, BC, SELFPAY | END 2022-09-12 09:59 | disposition home or self-care (01) | LOC: AMB 09-15 12:19 | PROVIDERS: PCP Internal Medicine; Visit Provider Family Medicine | DX: R55 Syncope and collapse (principal) | CPT/HCPCS: A0425; A0427 ==

== ENCOUNTER 2022-09-12 10:32 | Emergency (ER) | payer MEDICARE, BC, SELFPAY ==
[2022-09-12] VITALS (20 sets, daily range): BP systolic 138–157; BP diastolic 72–98; PULSE 53–79; RESP 16; TEMP 36.4; O2SAT 96–99; BMI 25.1
--- NOTE | 2022-09-12 11:18 | ED_ITS ---
HPI - General Adult General Chief complaint: Syncope/Fainted Stated complaint: Syncopal Time Seen by Provider: 09/12/22 10:59 Source: patient Limitations: no limitations History of Present Illness HPI narrative: Patient is an 87-year-old male coming in today complaining presyncopal and syncopal episodes. Patient was seen approximately 3 weeks ago when he had a syncopal episode and hit his head against the wall. He states that since then he has felt presyncopal multiple times. He had a what sounds like, syncopal episode yesterday and was evaluated in the emergency room. This morning he had 2 more syncopal episodes where he lost consciousness for a few seconds. Both times he was sitting at the breakfast table. The 1st time he leaned forward and became unresponsive for a few seconds. The 2nd time he leaned backward in his chair and started sliding out of his chair. His was able to catch him before he hit the floor and he woke up seconds later. When he wakes up he does not feel confused. He knows where he is and what is going on. He denies having headache. He has had no recent illnesses, fevers or chills. After his 1st syncopal episode 3 weeks ago he did have a 24 hour Holter monitor placed and he tells me that they found PVCs and nothing else. He does have a history of atrial fibrillation and he is on anticoagulation therapy for that. Patient returns today because he is scared of falling and passing out at home. He denies any chest pain or shortness of breath. No abdominal discomfort. No diarrhea. No urinary symptoms. Yesterday when he fell, he was in the bathroom and hit his knee on the ground. Related Data Previous Rx's Medication Instructions Recorded warfarin 5 mg tablet 5 mg PO QDAY Atrial Fibrillation 03/27/22 #90 tabs tamsulosin 0.4 mg capsule 0.4 mg PO QDAY #90 caps 07/11/22 metoprolol succinate 50 mg capsule 50 mg PO QDAY Hypertension #90 ea 08/28/22 sprinkle, ext. 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 Alert and oriented x3. Answers questions appropriately. Mood and affect are appropriate. Thoughts are goal oriented and rational. No tangential or magical thinking noted. Patient speaks in full sentences without needing to catch his breath. HEENT: Normocephalic atraumatic. Pupils are equally round reactive to light. Extraocular muscles are intact. Conjunctivae are moist without any icterus noted. Moist mucous membranes. Posterior pharynx is normal. Neck is soft without any lymphadenopathy or thyromegaly. No masses are appreciated. Cardiovascular: Irregularly irregular, S1 and S2 are present without any murmurs. Lungs: Clear to auscultation bilaterally no wheezes rhonchi or rales are appreciated. Patient takes deep breaths without any discomfort. Abdomen: Soft and nontender nondistended with normal bowel sounds. No guarding or rebound. No masses or organomegaly appreciated. Extremities: Bilateral lower extremities show 0 to trace edema. Normal DP and PT pulses. Patient has a knee brace in place and he did not feel that a knee examination was warranted. Skin: Warm, dry, intact No evidence of orthostatic hypotension noted. Const: Vital Signs, click to edit/add: Vital Signs - 24 hr 09/12/22 10:46 09/12/22 11:14 09/12/22 10:48 Temperature 97.5 F L Pulse Rate 68 Pulse Rate [Left P ulse Oximeter] 67 Pulse Rate [orthos tatic lying] Pulse Rate [orthos tatic sitting] Pulse Rate [orthos tatic standing] Respiratory Rate 16 Blood Pressure Blood Pressure [Ri ght Upper Arm] 157/98 H Blood Pressure [or thostatic lying] Blood Pressure [or thostatic sitting] Blood Pressure [or thostatic standing ] Pulse Oximetry 99 96 [facility] 09/12/22 11:00 09/12/22 11:01 09/12/22 11:02 Temperature Pulse Rate 53 L 64 64 Pulse Rate [Left P ulse Oximeter] Pulse Rate [orthos tatic lying] Pulse Rate [orthos tatic sitting] Pulse Rate [orthos tatic standing] Respiratory Rate Blood Pressure 138/72 Blood Pressure [Ri ght Upper Arm] Blood Pressure [or thostatic lying] Blood Pressure [or thostatic sitting] Blood Pressure [or thostatic standing ] Pulse Oximetry 99 99 98 Oxygen Delivery Co thod 09/12/22 11:30 09/12/22 11:31 09/12/22 13:03 Temperature Pulse Rate 61 59 L Pulse Rate [Left P ulse Oximeter] Pulse Rate [orthos tatic lying] 64 Pulse Rate [orthos tatic sitting] 59 L Pulse Rate [orthos tatic standing] 78 Respiratory Rate Blood Pressure 139/73 Blood Pressure [Ri ght Upper Arm] Blood Pressure [or thostatic lying] 150/84 H Blood Pressure [or thostatic sitting] 139/75 Blood Pressure [or thostatic standing ] 144/76 H Pulse Oximetry 98 99 Oxygen Delivery Me thod 09/12/22 11:32 09/12/22 12:00 09/12/22 12:01 Temperature Pulse Rate 59 L 58 L 58 L Pulse Rate [Left P ulse Oximeter] Pulse Rate [orthos tatic lying] Pulse Rate [orthos tatic sitting] Pulse Rate [orthos tatic standing] Respiratory Rate Blood Pressure 142/77 H Blood Pressure [Ri ght Upper Arm] Blood Pressure [or thostatic lying] Blood Pressure [or thostatic sitting] Blood Pressure [or thostatic standing ] Pulse Oximetry 99 98 96 Oxygen Delivery Me thod 09/12/22 12:30 09/12/22 12:32 Temperature Pulse Rate 62 63 Pulse Rate [Left P ulse Oximeter] Pulse Rate [orthos tatic lying] Pulse Rate [orthos tatic sitting] Pulse Rate [orthos tatic standing] Respiratory Rate Blood Pressure 141/79 H Blood Pressure [Ri ght Upper Arm] Blood Pressure [or thostatic lying] Blood Pressure [or thostatic sitting] Blood Pressure [or thostatic standing ] Pulse Oximetry 99 99 Oxygen Delivery Me thod Course Course Hospital Course: EKG, read by me, shows atrial fibrillation with a pulse of 64. His lab work is unremarkable, hyponatremia around his baseline. While he was here no significant arrhythmias noted on satellite project site monitor. I did consult with , neurology at [facility], we discussed the possibility of neurogenic syncope. We discussed the possibility of TIA versus seizure although neither seems likely given the description of his symptoms. Lastly we discussed cardiac causes including bradycardia and beta-rodrigo use. He did not recommend any further imaging at this time. Again, patient did have a Holter monitor placed for 24 hours however he had no syncopal episodes during that time. Vital Signs Vital signs: Initial Vital Signs Temperature 97.5 F L 09/12/22 10:46 Temperature Source Temporal Artery Scan 09/12/22 10:46 Pulse Rate 67 09/12/22 10:46 Pulse Rhythm 09/12/22 10:46 Respiratory Rate 16 09/12/22 10:46 Blood Pressure 157/98 H 09/12/22 10:46 Blood Pressure Mean 117 09/12/22 10:46 Blood Pressure Position Sitting 09/12/22 10:46 Pulse Oximetry 99 09/12/22 10:46 Oxygen Delivery Method 09/12/22 10:46 Vital Signs Temperature 97.5 F L 09/12/22 10:46 Pulse Rate 67 09/12/22 10:46 Respiratory Rate 16 09/12/22 10:46 Blood Pressure 157/98 H 09/12/22 10:46 Pulse Oximetry 99 09/12/22 10:46 Oxygen Delivery Method 09/12/22 10:46 Temperature 97.5 F L 09/12/22 10:46 Pulse Rate 64 09/12/22 13:03 Respiratory Rate 16 09/12/22 10:46 Blood Pressure 150/84 H 09/12/22 13:03 Pulse Oximetry 99 09/12/22 12:32 Oxygen Delivery Method 09/12/22 10:46 Medical Decision Making MDM Narrative Medical decision making narrative: 87-year-old male with recurrent episodes of very brief syncope. He does have a cardiology appointment scheduled and he is encouraged to keep that. Discussed being very careful in the meantime. We discussed that we will not take him off his blood thinner at this time as I do believe that the benefits of remaining on it outweighs the risk at this time. We discussed reasons to return to the ER. Patient was agreeable had no other questions. Medical Records Medical records reviewed: Yes I reviewed the patient's medical records Lab Data Lab results reviewed: Yes I reviewed the patient's lab results Labs: Lab Results 09/12/22 09/12/22 09/12/22 Range/Units 11:15 11:24 11:24 WBC 8.08 (4.50-11.00) K/uL RBC 3.89 L (4.30-5.90) m/uL Hgb 12.8 L (13.5-17.5) gm/dL Hct 37.4 (37.0-53.0) % MCV 96 (80-100) fL MCH 33 (26-34) pg MCHC 34 (32-36) gm/dL RDW Coeff of [place]eron[place] 12.7 (11.5-15.5) % Plt Count 230 (140-440) K/uL Neut % (Auto) 65.2 (42.0-72.0) % Lymph % (Auto) 14.9 L (20-44) % Green % (Auto) 17.9 H (0.0-11.0) % Eos % (Auto) 1.1 (0.0-7.0) % Baso % (Auto) 0.5 (0.0-3.0) % Neut # (Auto) 5.27 (1.7-7.0) K/uL Lymph # (Auto) 1.20 (0.90-2.90) K/uL Green # (Auto) 1.40 H (0.00-0.90) K/UL Eos # (Auto) 0.09 (0.00-0.50) K/uL Baso # (Auto) 0.04 (0.00-0.30) K/uL Sodium 132 L (135-149) mmol/L Potassium 4.4 (3.6-5.1) mmol/L Chloride 98 (96-114) mmol/L Carbon Dioxide 29 (20-32) mmol/L BUN 16 (7-30) mg/dL Creatinine 0.7 (0.5-1.5) mg/dL Estimated Creat Clear 61.03 Estimated GFR 90 ml/min Glucose 110 (60-115) mg/dL Calcium 9.7 (8.4-10.6) mg/dL Total Bilirubin 0.9 (0.1-1.5) mg/dL Direct Bilirubin 0.1 (0.0-0.5) mg/dL AST 30 (12-35) U/L ALT 28 (4-50) U/L Alkaline Phosphatase 71 (40-150) U/L Total Protein 7.0 (6.0-8.3) g/dL Albumin 3.9 (3.3-5.0) g/dL Ethyl Alcohol < 0.01 L (0.01-0.03) % POC Troponin I 0.00 L (0.01-0.04) ng/ml ECG Data Attestation: I personally reviewed and interpreted this ECG as follows: Discharge Plan Discharge Clinical Impression: Syncope Patient Disposition: Home, Self-Care Condition: Stable Additional Instructions: It is recommended that you keep your cardiology appointment to discuss having a satellite project site monitor placed for a longer period of time or changing the dose of your metoprolol. You should be very careful when you are at home are out in public, you should not be driving. Make sure to stay well hydrated and get plenty of rest. Follow-up with your primary care provider as needed. Prescriptions: No Action warfarin 5 mg tablet 5 mg PO QDAY Qty: 90 3RF Protocol: Dose Management Condition: Thursday Dose/Route: 5 % Instruction: 1 x 5 % tablet Condition: Thursday Dose/Route: 5 % Instruction: 1 x 5 % tablet Condition: Thursday Dose/Route: 5 % Instruction: 1 x 5 % tablet Condition: Thursday Dose/Route: 5 % Instruction: 1 x 5 % tablet Condition: Dose/Route: 5 % Instruction: 1 x 5 % tablet Condition: Thursday Dose/Route: 5 % Instruction: 1 x 5 % tablet Condition: Thursday Dose/Route: 5 % Instruction: 1 x 5 % tablet Protocol Text: Adjustment Start Date: Thursday07/22/22 INR Value: 2.7 INR Date: 07/22/22 Recheck Date: 08/19/22 tamsulosin 0.4 mg capsule 0.4 mg PO QDAY Qty: 90 1RF metoprolol succinate 50 mg capsule,sprinkle,ER 24hr 50 mg PO QDAY Qty: 90 3RF atorvastatin 40 mg tablet 40 mg PO QDAY Qty: 90 0RF Follow Up/Referrals: Raudel Rodas MD [Primary Care Provider] - Stand Alone Forms: [employer] Info Instructions
[2022-09-12 11:31] LABS: Basophils Absolute Auto 0.04 K/uL (0.00-0.30); Basophils Percent Auto 0.5 % (0.0-3.0); Eosinophils Absolute Auto 0.09 K/uL (0.00-0.50); Eosinophils Percent Auto 1.1 % (0.0-7.0); Hematocrit 37.4 % (37.0-53.0); Hemoglobin* 12.8 gm/dL (13.5-17.5); Immature Granulocytes Abs Auto 0.03 K/uL (0.00-0.30); Immature Granulocytes Pct Auto 0.4 %; Lymphocytes Percent Auto 14.9 % (20-44); Mean Corpuscular HGB Conc 34 gm/dL (32-36); Mean Corpuscular Hemoglobin 33 pg (26-34); Mean Corpuscular Volume 96 fL (80-100); Monocytes Percent Auto 17.9 % (0.0-11.0); Neutrophils Absolute Auto 5.27 K/uL (1.7-7.0); Neutrophils Percent Auto 65.2 % (42.0-72.0); Platelet Count* 230 K/uL (140-440); RDW Coefficient of Variation % 12.7 % (11.5-15.5); Red Blood Count 3.89 m/uL (4.30-5.90); White Blood Count* 8.08 K/uL (4.50-11.00)
[2022-09-12 11:41] LABS: Slide Review Reflex No
[2022-09-12 11:43] LABS: Albumin* 3.9 g/dL (3.3-5.0); Chloride* 98 mmol/L (96-114); Sodium* 132 mmol/L (135-149)
[2022-09-12 11:44] LABS: Potassium* 4.4 mmol/L (3.6-5.1)
[2022-09-12 11:46] LABS: Alkaline Phosphatase* 71 U/L (40-150); Aspartate Amino Transferase* 30 U/L (12-35); Bilirubin Direct* 0.1 mg/dL (0.0-0.5); Bilirubin Total* 0.9 mg/dL (0.1-1.5); Blood Urea Nitrogen* 16 mg/dL (7-30); Carbon Dioxide* 29 mmol/L (20-32); Creatinine* 0.7 mg/dL (0.5-1.5); Est. Creatinine Clearance* 61.03; Estimated Glomerular Filt Rate 90 ml/min; Glucose* 110 mg/dL (60-115)
[2022-09-12 11:47] LABS: Alanine Aminotransferase* 28 U/L (4-50); Calcium* 9.7 mg/dL (8.4-10.6)
[2022-09-12 12:04] LABS: Ethanol* < 0.01 % (0.01-0.03)
== END 2022-09-12 14:15 | disposition home or self-care (01) ==
PROVIDERS: Emergency Provider Family Medicine; PCP Internal Medicine
DX: R55 Syncope and collapse (principal)
CPT/HCPCS: 36415; 80048; 80076; 82077; 84484; 85025; 93005; 94761; 99284

== ENCOUNTER 2022-09-13 00:58 | Observation (INO) | payer MEDICARE, BC, SELFPAY ==
[2022-09-13] VITALS (23 sets, daily range): BP systolic 118–179; BP diastolic 48–110; PULSE 63–102; RESP 12–18; TEMP 36.3–36.8; O2SAT 95–100; BMI 25.2
--- NOTE | 2022-09-13 01:12 | CRLHL7_ITS ---
For Patients: As a result of the Century Cures Act, medical imaging exams and procedure reports are released immediately into your electronic medical record. You may view this report before your referring provider. If you have questions, please contact your health care provider. INDICATION: Syncope. TECHNIQUE: CT head without contrast. COMPARISON: None. FINDINGS: Brain parenchyma and extra-axial spaces: Mild global brain parenchymal volume loss with commensurate sulcal and ventricular enlargement. Bilateral areas of periventricular hypoattenuation, likely representing chronic small vessel ischemic disease. The handley-white differentiation is normal. No sign of mass, hemorrhage, or midline shift. No extra-axial fluid collection. Skull base and calvarium: The visualized paranasal sinuses and mastoid air cells demonstrate no acute or significant findings. Bilateral lens replacement. No skull fractures. Atherosclerotic calcification of the bilateral carotid siphons. IMPRESSION: No evidence of an acute intracranial abnormality. Brain parenchyma findings consistent with chronic small vessel ischemic disease on a background of age-related involutional change. Please note that all CT scans at this facility use dose modulation, iterative reconstruction, and/or weight-based dosing when appropriate to reduce radiation dose to as low as reasonably achievable. Dictated by Musa Ashby MD @ 09/13/2022 1:43:08 AM (Electronically Signed)
--- NOTE | 2022-09-13 01:14 | ED_ITS ---
HPI - General Adult General Chief complaint: Seizure Stated complaint: seizures Time Seen by Provider: 09/13/22 01:00 History of Present Illness HPI narrative: Pt is an 87 year old gentleman who is making his 4th visit to the ED in the last month for syncope. His first episode occured while making the bed with his . The patient had a brief episode of syncope after bending over and straining. Pt had a full evaluation in the ED with a negative CT of the head and cervical spine. I saw the patient in the clinic following this visit at which time I requested a Holter monitor which came back showing a PVC burden of 19.5%. Pt was set up with Cardiology. That consult is still pending. He has subsequently been seen in the ED twice for syncope that have occurred in his apartment witnessed by his while he has been doing general activities of daily living. Pt was evaluated within the last 12 hours here in the ED for an event. Workup to this point has been unremarkable with the exception of the PVC's seen on holter and mild hyponatremia. Pt since returning home today has had approximatelyl 20 episodes where he has become regid and then briefly lost consciousness. No seizure activity. Pt has not post-ictal symptoms but does not really remember much of the events. Pt is brought in by his who is extremely concerned. Pt states that he now feels fine. Case was discussed this afternoon with [facility]. Watchful waiting was encouraged. Related Data Previous Rx's Medication Instructions Recorded warfarin 5 mg tablet 5 mg PO QDAY Atrial Fibrillation 03/27/22 #90 tabs tamsulosin 0.4 mg capsule 0.4 mg PO QDAY #90 caps 07/11/22 metoprolol succinate 50 mg capsule 50 mg PO QDAY Hypertension #90 ea 08/28/22 sprinkle, ext. 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 EYES: No scleral icterus. ENT: Tympanic membranes and oropharynx normal. THYROID: no thyroid nodules or thyromegaly. LYMPH: No supraclavicular or cervical lymphadenopathy. SKIN: Visible skin seen during exam normal or with benign process only. EXT: No dependent lower extremity pedal edema. HEART: Irregularly irregular LUNGS: Clear to auscultation bilaterally with no crackles or wheezes. ABD: Soft, non tender, non distended. PSYCH: Good eye contact, speech is not pressured. Neruologic: CN 2-12 intact no focal defect. Pt oriented. Const: Vital Signs, click to edit/add: Vital Signs - 24 hr 09/13/22 01:14 Temperature 98.0 F Pulse Rate [Right Pulse Oximeter] 89 Respiratory Rate 18 Blood Pressure [Ri ght Upper Arm] 179/110 H Pulse Oximetry 99 Oxygen Delivery Me thod Room Air Course Course Hospital Course: CBC, CMP, UA, CT of head ordered. Pt placed on tele. Reevaluation(s) Reevaluation #1: Pt head CT negative. Pt tele shows atrial fibrillation with occasional PVC. Labs reviewed. Vital Signs Vital signs: Initial Vital Signs Temperature 98.0 F 09/13/22 01:14 Temperature Source Temporal Artery Scan 09/13/22 01:14 Pulse Rate 89 09/13/22 01:14 Pulse Rhythm 09/13/22 01:14 Respiratory Rate 18 09/13/22 01:14 Blood Pressure 179/110 H 09/13/22 01:14 Blood Pressure Mean 133 09/13/22 01:14 Blood Pressure Position Sitting 09/13/22 01:14 Pulse Oximetry 99 09/13/22 01:14 Oxygen Delivery Method 09/13/22 01:14 Vital Signs Temperature 98.0 F 09/13/22 01:14 Pulse Rate 89 09/13/22 01:14 Respiratory Rate 18 09/13/22 01:14 Blood Pressure 179/110 H 09/13/22 01:14 Pulse Oximetry 99 09/13/22 01:14 Oxygen Delivery Method 09/13/22 01:14 Temperature 98.0 F 09/13/22 01:14 Pulse Rate 89 09/13/22 01:14 Respiratory Rate 18 09/13/22 01:14 Blood Pressure 179/110 H 09/13/22 01:14 Pulse Oximetry 99 09/13/22 01:14 Oxygen Delivery Method 09/13/22 01:14 Medical Decision Making MDM Narrative Medical decision making narrative: 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 Pt was seen earlier in the day. Case was discussed with neurology. Pt was discharged to home and had more syncopal events. It is unclear what is happening at this point. Repeat Head CT negative for significant pathology. Review of labs show mild hyponatremia and anemia. Pt's tele shows atrial fibrillation with occasional PVC. Pt admitted to observation. Differential Diagnosis Differential Diagnosis: Syncope, Seizure, TIA, CVA, Arrhythmia Lab Data Labs: Lab Results 09/13/22 09/13/22 09/13/22 Range/Units 01:14 01:14 01:14 WBC 10.71 (4.50-11.00) K/uL RBC 3.84 L (4.30-5.90) m/uL Hgb 12.6 L (13.5-17.5) gm/dL Hct 36.2 L (37.0-53.0) % MCV 94 (80-100) fL MCH 33 (26-34) pg MCHC 35 (32-36) gm/dL RDW Coeff of [place] 12.4 (11.5-15.5) % Plt Count 216 (140-440) K/uL Neut % (Auto) 78.4 H (42.0-72.0) % Lymph % (Auto) 6.9 L (20-44) % [place] % (Auto) 14.2 H (0.0-11.0) % Eos % (Auto) 0.0 (0.0-7.0) % Baso % (Auto) 0.2 (0.0-3.0) % Neut # (Auto) 8.40 H (1.7-7.0) K/uL Lymph # (Auto) 0.70 L (0.90-2.90) K/uL [place] # (Auto) 1.50 H (0.00-0.90) K/UL Eos # (Auto) 0.00 (0.00-0.50) K/uL Baso # (Auto) 0.02 (0.00-0.30) K/uL Sodium 128 L (135-149) mmol/L Potassium 3.7 (3.6-5.1) mmol/L Chloride 98 (96-114) mmol/L Carbon Dioxide 22 (20-32) mmol/L BUN 15 (7-30) mg/dL Creatinine 0.6 (0.5-1.5) mg/dL Estimated Creat Clear 61.03 Estimated GFR 95 ml/min Glucose 138 H (60-115) mg/dL Lactate 1.6 (0.5-1.9) mmol/L Calcium 9.7 (8.4-10.6) mg/dL Total Bilirubin 1.6 H (0.1-1.5) mg/dL AST 30 (12-35) U/L ALT 27 (4-50) U/L Alkaline Phosphatase 68 (40-150) U/L Total Protein 7.1 (6.0-8.3) g/dL Albumin 4.1 (3.3-5.0) g/dL Discharge Plan Discharge Clinical Impression: Syncope Patient Disposition: Admitted As Inpatient Activity Level: Other Discharge Diet: Other Prescriptions: No Action warfarin 5 mg tablet 5 mg PO QDAY Qty: 90 3RF Protocol: Dose Management Condition: Thursday Dose/Route: 5 % Instruction: 1 x 5 % tablet Condition: Thursday Dose/Route: 5 % Instruction: 1 x 5 % tablet Condition: Thursday Dose/Route: 5 % Instruction: 1 x 5 % tablet Condition: Thursday Dose/Route: 5 % Instruction: 1 x 5 % tablet Condition: Dose/Route: 5 % Instruction: 1 x 5 % tablet Condition: Thursday Dose/Route: 5 % Instruction: 1 x 5 % tablet Condition: Thursday Dose/Route: 5 % Instruction: 1 x 5 % tablet Protocol Text: Adjustment Start Date: Thursday07/22/22 INR Value: 2.7 INR Date: 07/22/22 Recheck Date: 08/19/22 tamsulosin 0.4 mg capsule 0.4 mg PO QDAY Qty: 90 1RF metoprolol succinate 50 mg capsule,sprinkle,ER 24hr 50 mg PO QDAY Qty: 90 3RF atorvastatin 40 mg tablet 40 mg PO QDAY Qty: 90 0RF Follow Up/Referrals: Raudel Rodas MD [Primary Care Provider] -
[2022-09-13 01:23] LABS: Lactate* 1.6 mmol/L (0.5-1.9)
[2022-09-13 01:26] LABS: Basophils Absolute Auto 0.02 K/uL (0.00-0.30); Basophils Percent Auto 0.2 % (0.0-3.0); Hematocrit 36.2 % (37.0-53.0); Hemoglobin* 12.6 gm/dL (13.5-17.5); Immature Granulocytes Abs Auto 0.03 K/uL (0.00-0.30); Immature Granulocytes Pct Auto 0.3 %; Lymphocytes Percent Auto 6.9 % (20-44); Mean Corpuscular HGB Conc 35 gm/dL (32-36); Mean Corpuscular Hemoglobin 33 pg (26-34); Mean Corpuscular Volume 94 fL (80-100); Monocytes Percent Auto 14.2 % (0.0-11.0); Neutrophils Percent Auto 78.4 % (42.0-72.0); Platelet Count* 216 K/uL (140-440); RDW Coefficient of Variation % 12.4 % (11.5-15.5); Red Blood Count 3.84 m/uL (4.30-5.90); White Blood Count* 10.71 K/uL (4.50-11.00)
[2022-09-13 01:29] LABS: Slide Review Reflex No
[2022-09-13 01:42] LABS: Albumin* 4.1 g/dL (3.3-5.0); Chloride* 98 mmol/L (96-114); Potassium* 3.7 mmol/L (3.6-5.1); Sodium* 128 mmol/L (135-149)
[2022-09-13 01:45] LABS: Alanine Aminotransferase* 27 U/L (4-50); Alkaline Phosphatase* 68 U/L (40-150); Aspartate Amino Transferase* 30 U/L (12-35); Bilirubin Total* 1.6 mg/dL (0.1-1.5); Blood Urea Nitrogen* 15 mg/dL (7-30); Calcium* 9.7 mg/dL (8.4-10.6); Carbon Dioxide* 22 mmol/L (20-32); Creatinine* 0.6 mg/dL (0.5-1.5); Est. Creatinine Clearance* 61.03; Estimated Glomerular Filt Rate 95 ml/min; Glucose* 138 mg/dL (60-115); Total Protein* 7.1 g/dL (6.0-8.3)
[2022-09-13 02:45] LABS: SARS Antigen* negative (Negative)
--- NOTE | 2022-09-13 03:45 | P.IMCN_ITS ---
Date of Consult Consult date: 09/13/22 Primary Care Provider: Raudel Rodas MD Consult Narrative Narrative: [facility] Hospitalist ADMISSION SUPPORT NOTE eHospitalist was contacted by Dr. Rodas with request of admission support. Chief complaint: Syncope versus seizure HPI: The history is gathered from the patient who has some difficulty recalling details of the events as he is felt confused during some of the episodes. I nformation also gathered from the chart as well as the ED provider. The patient's story starts on 08/21 when he had what was thought to be a syncopal episode. Per documentation he was standing at home helping his make the bed when he became dizzy falling backwards hitting his head with brief loss of consciousness for a few seconds. In the ED he was evaluated placed on Holter monitor and discharged. He saw his PCP on 08/26 and up to that point did not have any further events. Holter monitor showed PVCs. Returns 09/11 accompanied by his . Apparently he had gotten up to go to the bathroom and then return to bed and fell asleep but was found to be shaking and moaning.. He was evaluated. Case was discussed with neurology per report who recommended just watchful monitoring. He comes back a third time having had multiple episodes where he was rigid and then had brief loss of consciousness. He reports that sometimes he would feel dizzy before these episodes occur but felt as though he was confused at times when his would speak with him. We discussed whether that could be stressful events resulting in symptoms however he reports nothing untoward. He does drink about 3 drinks per day. He does complain of left knee pain related to a fall. He is being admitted for further monitoring. 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 Social History Highest level of school completed/degree received: Doctoral degree Smoking Status: Former smoker Do you use any of these nicotine containing products: None How often do you have a drink containing alcohol: 4 or more times a week Alcohol type: wine and hard liquor How many standard drinks containing alcohol do you have on a typical day: 5 or 6 How often do you have six or more drinks on one occasion: Weekly AUDIT-C Alcohol total score: 9 Non-prescribed substance use: denies use Caffeine: Yes service: Yes Meds Home Medications and Allergies Allergies Allergy/AdvReac Type Severity Reaction Status Date / Time Cephalosporins Allergy Mild Hives Verified 09/12/22 10:49 Exam Const: Vital Signs, click to edit/add: Vital Signs - 24 hr 09/13/22 01:14 09/13/22 01:10 09/13/22 01:30 Temperature 98.0 F Pulse Rate [Right Pulse Oximeter] 89 82 Respiratory Rate 18 16 Blood Pressure [Ri ght Arm] Blood Pressure [Ri ght Upper Arm] 179/110 H 150/84 H Pulse Oximetry 99 98 98 Oxygen Delivery Me thod Room Air Room Air 09/13/22 02:00 09/13/22 02:30 09/13/22 03:27 Temperature 97.4 F L Pulse Rate [Right Pulse Oximeter] 73 71 79 Respiratory Rate 16 16 18 Blood Pressure [Ri ght Arm] 158/99 H Blood Pressure [Ri ght Upper Arm] 133/74 140/90 H Pulse Oximetry 98 98 99 Oxygen Delivery Me thod Room Air Room Air Room Air Labs Labs: Short CBC 09/13/22 Range/Units 01:14 WBC 10.71 (4.50-11.00) K/uL Hgb 12.6 L (13.5-17.5) gm/dL Hct 36.2 L (37.0-53.0) % Plt Count 216 (140-440) K/uL BMP 09/13/22 01:14 Sodium 128 L Potassium 3.7 Chloride 98 Carbon Dioxide 22 BUN 15 Creatinine 0.6 Glucose 138 H Calcium 9.7 Liver Function 09/13/22 Range/Units 01:14 Total Bilirubin 1.6 H (0.1-1.5) mg/dL AST 30 (12-35) U/L ALT 27 (4-50) U/L Alkaline Phosphatase 68 (40-150) U/L Albumin 4.1 (3.3-5.0) g/dL Assessment and Plan Assessment and plan (1) Episode of shaking: Status: Acute Plan EKG per my interpretation showed sinus rhythm Assessment and Plan: 1. Altered level of consciousness-syncope versus seizure versus pseudoseizure versus other. He has hyponatremic but this should not result in transient episodes of loss of consciousness. With multiple episodes occurring at home, I would anticipate something should occur in the hospital. Will leave for rounding provider to discuss further with neurology as this does not seem to be a cardiac event however the patient will continue to be monitored on telemetry. 2. Hyponatremia-I have no baseline to compare. Initiated work-up 3. Dyslipidemia-resume statin once reconciled 4. Atrial fibrillation-resume metoprolol and Coumadin once reconciled 5. BPH-stable on Flomax resume once reconciled 6. Left knee pain-related to fall. X-ray. 7. DVT prophylaxis-fully anticoagulated on Coumadin 8. CODE STATUS full code per documentation Chart review was performed as well as evaluation of the patient via video. Thank you for involving ehospitalist. Please contact [phone] if further assistance is needed.
--- NOTE | 2022-09-13 05:12 | PC.NURSE ---
Admission note: Pt arrived at the unit at 0305 on a bed accompanied by ED staff. Alert and oriented on arrival. Limping on the left left, pt confirmed that he had a fall yesterday at the house which resulted to pain in the left knee. No physical injury such as bruise or abrasion observed. Vitally stable as per chart but telemetry read as A.fib with PVC. Dr. Aguilar assessment done Curtis. X-ray to the left knee ordered.
[2022-09-13 08:10] LABS: Basophils Absolute Auto 0.02 K/uL (0.00-0.30); Basophils Percent Auto 0.2 % (0.0-3.0); Eosinophils Absolute Auto 0.01 K/uL (0.00-0.50); Eosinophils Percent Auto 0.1 % (0.0-7.0); Hematocrit 34.6 % (37.0-53.0); Hemoglobin* 11.9 gm/dL (13.5-17.5); Immature Granulocytes Abs Auto 0.02 K/uL (0.00-0.30); Immature Granulocytes Pct Auto 0.2 %; Lymphocytes Percent Auto 12.5 % (20-44); Mean Corpuscular HGB Conc 34 gm/dL (32-36); Mean Corpuscular Hemoglobin 33 pg (26-34); Mean Corpuscular Volume 95 fL (80-100); Neutrophils Absolute Auto 6.74 K/uL (1.7-7.0); Platelet Count* 214 K/uL (140-440); RDW Coefficient of Variation % 12.5 % (11.5-15.5); Red Blood Count 3.65 m/uL (4.30-5.90); White Blood Count* 9.91 K/uL (4.50-11.00)
[2022-09-13 08:17] LABS: Slide Review Reflex No
[2022-09-13 08:27] LABS: Albumin* 3.6 g/dL (3.3-5.0); Chloride* 97 mmol/L (96-114); Potassium* 4.1 mmol/L (3.6-5.1); Sodium* 127 mmol/L (135-149)
[2022-09-13 08:28] LABS: INR 2.37 (0.91-1.10); Prothrombin Time 27.1 Seconds
[2022-09-13 08:29] LABS: Creatinine* 0.6 mg/dL (0.5-1.5); Est. Creatinine Clearance* 61.03; Estimated Glomerular Filt Rate 95 ml/min
[2022-09-13 08:30] LABS: Alanine Aminotransferase* 24 U/L (4-50); Alkaline Phosphatase* 55 U/L (40-150); Aspartate Amino Transferase* 27 U/L (12-35); Bilirubin Total* 1.7 mg/dL (0.1-1.5); Blood Urea Nitrogen* 14 mg/dL (7-30); Carbon Dioxide* 26 mmol/L (20-32); Glucose* 117 mg/dL (60-115); Total Protein* 6.4 g/dL (6.0-8.3)
[2022-09-13 08:31] LABS: Calcium* 9.4 mg/dL (8.4-10.6); Magnesium* 1.5 mg/dL (1.5-2.6)
[2022-09-13 08:47] LABS: Appearance Urine Clear (Clear); Bilirubin Urine Negative (Negative); Blood Urine Trace-intact (Negative); Color Urine Amber (Yellow); Glucose Urine Negative (Negative); Ketones Urine Negative (Negative); Leukocyte Esterase Urine Negative (Negative); Nitrite Urine Negative (Negative); Protein Urine Negative (Negative); Specific Gravity Urine 1.015 (1.000-1.030)
[2022-09-13] MEDS: METOPROLOL SUCCINATE (XL) 50 MG TAB PO (08:57)
[2022-09-13] MEDS: TAMSULOSIN HCL 0.4 MG CAPSULE PO (08:57)
[2022-09-13] MEDS: ATORVASTATIN CALCIUM 40 MG TABLET PO (08:57)
[2022-09-13] MEDS: WARFARIN 5 MG TABLET PO (08:57)
[2022-09-13] MEDS: SODIUM CHLORIDE 0.9 % (FLUSH) 10 ML SYRINGE 5 ML IVF (08:58)
[2022-09-13 09:33] LABS: Squamous Epithelial Cell Urine Few (None-Few); WBC Urine 0-2 (0-5)
--- NOTE | 2022-09-13 13:02 | REH.OT ---
Orders received for OT eval and treat. Patient echo and may transfer to a higher level of care hospital. If patient does not discharge, he will be evaluated on 09/14/22 as able.
[2022-09-13] MEDS: AMIODARONE 50 MG/ML inj 150 MG in 5 % DEXTROSE 100 ML 100 ML 618 MG IVPB (14:00)
[2022-09-13] MEDS: MAGNESIUM SULFATE 2 GM/50 ML PIGGYBACK IVPB (14:08)
--- NOTE | 2022-09-13 14:16 | PC.NURSE ---
End of Shift: Patient pleasant and cooperative. Patient vitally stable, lung clear, BS WNL, IV's intact. Patient rates right arm pain and left knee soreness 2/10 due to fall he had at home. Patient 1 assist, walker, gb. Patient tolerating regular diet, and urinating. RN went to check on patient at about 1330 when other RN's ran into room as patient was in [facility], MD aware, EKG performed. Patient has jumped in and out of [facility] since 1330. Patient status then changed to CCU at 1345. Patient reports being able to feel when heart rate increased, patient takes a deep breath. Patient then given appropriate meds for heart when in CCU room and report given to Kate.
--- NOTE | 2022-09-13 14:25 | PM.IMPN1 ---
Progress Note: A&P Assessment and plan (1) Loss of consciousness: Problem details: Very frequent episodes, up to 20, in the last day. Likely due to recurrent ventricular tachycardia with cerebral hypoperfusion. Status: Acute (2) Sustained ventricular tachycardia: Problem details: Likely cause of loss of consciousness. Now on amiodarone drip. Also magnesium. Transfer for cardiology consult, ICU care, defibrillator. Status: Acute (3) Coronary artery disease: Problem details: History of coronary artery disease. Normal troponin on admission. Status: Acute (4) Chronic hyponatremia: Status: Acute (5) Anticoagulation goal of INR 2 to 3: Problem details: indication: atrial fibrillation duration: lifelong. INR today 2.37 Status: Acute Plan Transfer to [facility] for ICU care, Cardiology, defibrillator Time Spent With Patient Total time spent: Total time spent today is 90 minutes in critical care evaluation and management Subjective Time Seen by Provider: 14:25 Date Seen: 09/13/22 Interval history: 87-year-old male seen in followup of hospital admission for recurrent loss of consciousness. Patient had an episode at the end of July. Evaluation at that point suggested syncope. He had a Holter monitor showing heavy PVC burden of about 20% with an occasional pauses up to 2.6 seconds. Underlying rhythm AFib. Another episode about 2 days ago. Brought to the emergency department with no new findings on evaluation. Yesterday his found that he had up to 20 episodes of loss of consciousness. Some of these occurred while he was sitting in the chair. noted that he would become rigid and unresponsive. His eyes would turn up in his head. This would last for up to a minute. He would slowly come back to consciousness after this. There was no biting of his tongue or cheeks. No shaking motions. No incontinence. He also had these episodes when lying in bed. Overnight he had no episodes here. This morning he was generally doing well when I saw him. This afternoon he had several consecutive episodes of ventricular tachycardia lasting up to a minute with a heart rate over 200. He was supine in bed and did not lose consciousness. He did report feeling dizzy with these episodes. Echocardiogram obtained just prior to the onset of V-tach showed a preserved left ventricular ejection fraction, mildly reduced right ventricular function, mild to moderate MR. No other marked abnormalities. He was transferred to the CCU. Intravenous amiodarone bolus and drip initiated. Magnesium also added. Today's magnesium level 1.5. I spoke with Dr. Cee, cardiology, and Dr. George, chief diversity officer, who accept the patient to transfer to [facility]. Exam Narrative: Exam Narrative: He is alert and appears in no distress. He is oriented to his circumstances and gives his own history. Respirations are clear to auscultation. Cardiovascular: S1, S2, irregularly irregular. No murmur gallop or rub. Abdomen: Bowel sounds active. Abdomen is soft without tenderness or mass. Extremities without edema. He has intact peripheral pulses. Good perfusion. Const: Vital Signs, click to edit/add: Vital Signs - 24 hr 09/13/22 01:14 09/13/22 01:10 09/13/22 01:30 Temperature 98.0 F Pulse Rate Pulse Rate [Right Pulse Oximeter] 89 82 Pulse Rate [orthos tatic lying Right] Pulse Rate [orthos tatic sitting Righ t] Pulse Rate [orthos tatic standing Rig ht] Respiratory Rate 18 16 Blood Pressure [Ri ght Arm] Blood Pressure [Ri ght Upper Arm] 179/110 H 150/84 H Blood Pressure [or thostatic lying Ri ght Arm] Blood Pressure [or thostatic sitting Right Arm] Blood Pressure [or thostatic standing Right Arm] Pulse Oximetry 99 98 98 Oxygen Delivery Me thod Room Air Room Air 09/13/22 02:00 09/13/22 02:30 09/13/22 03:27 Temperature 97.4 F L Pulse Rate Pulse Rate [Right Pulse Oximeter] 73 71 79 Pulse Rate [orthos tatic lying Right] Pulse Rate [orthos tatic sitting Righ t] Pulse Rate [orthos tatic standing Rig ht] Respiratory Rate 16 16 18 Blood Pressure [Ri ght Arm] 158/99 H Blood Pressure [Ri ght Upper Arm] 133/74 140/90 H Blood Pressure [or thostatic lying Ri ght Arm] Blood Pressure [or thostatic sitting Right Arm] Blood Pressure [or thostatic standing Right Arm] Pulse Oximetry 98 98 99 Oxygen Delivery Me thod Room Air Room Air Room Air 09/13/22 03:00 09/13/22 02:15 09/13/22 07:00 Temperature 97.4 F L 97.9 F Pulse Rate 74 Pulse Rate [Right Pulse Oximeter] 79 75 Pulse Rate [orthos tatic lying Right] Pulse Rate [orthos tatic sitting Righ t] Pulse Rate [orthos tatic standing Rig ht] Respiratory Rate 18 12 Blood Pressure [Ri ght Arm] 158/99 H 142/73 H Blood Pressure [Ri ght Upper Arm] Blood Pressure [or thostatic lying Ri ght Arm] Blood Pressure [or thostatic sitting Right Arm] Blood Pressure [or thostatic standing Right Arm] Pulse Oximetry 99 98 Oxygen Delivery Me thod Room Air Room Air 09/13/22 07:00 09/13/22 08:22 09/13/22 09:00 Temperature Pulse Rate 77 Pulse Rate [Right Pulse Oximeter] 75 Pulse Rate [orthos tatic lying Right] 75 Pulse Rate [orthos tatic sitting Righ t] 87 Pulse Rate [orthos tatic standing Rig ht] 102 H Respiratory Rate 12 Blood Pressure [Ri ght Arm] Blood Pressure [Ri ght Upper Arm] Blood Pressure [or thostatic lying Ri ght Arm] 142/73 H Blood Pressure [or thostatic sitting Right Arm] 165/93 H Blood Pressure [or thostatic standing Right Arm] 156/94 H Pulse Oximetry Oxygen Delivery Me thod 09/13/22 11:00 09/13/22 14:05 09/13/22 14:24 Temperature 98.3 F Pulse Rate Pulse Rate [Right Pulse Oximeter] 66 65 74 Pulse Rate [orthos tatic lying Right] Pulse Rate [orthos tatic sitting Righ t] Pulse Rate [orthos tatic standing Rig ht] Respiratory Rate 16 14 18 Blood Pressure [Ri ght Arm] 135/68 129/72 118/70 Blood Pressure [Ri ght Upper Arm] Blood Pressure [or thostatic lying Ri ght Arm] Blood Pressure [or thostatic sitting Right Arm] Blood Pressure [or thostatic standing Right Arm] Pulse Oximetry 97 99 97 Oxygen Delivery Me thod Room Air Room Air Room Air 09/13/22 13:50 Temperature Pulse Rate Pulse Rate [Right Pulse Oximeter] 76 Pulse Rate [orthos tatic lying Right] Pulse Rate [orthos tatic sitting Righ t] Pulse Rate [orthos tatic standing Rig ht] Respiratory Rate 16 Blood Pressure [Ri ght Arm] 148/69 H Blood Pressure [Ri ght Upper Arm] Blood Pressure [or thostatic lying Ri ght Arm] Blood Pressure [or thostatic sitting Right Arm] Blood Pressure [or thostatic standing Right Arm] Pulse Oximetry 97 Oxygen Delivery Me thod Room Air Documenting provider has reviewed patient's vital signs: yes Labs Labs: Laboratory Results - last 24 hr 09/13/22 09/13/22 09/13/22 01:14 01:14 01:14 WBC 10.71 RBC 3.84 L Hgb 12.6 L Hct 36.2 L MCV 94 MCH 33 MCHC 35 RDW Coeff of [place] 12.4 Plt Count 216 Neut % (Auto) 78.4 H Lymph % (Auto) 6.9 L [place] % (Auto) 14.2 H Eos % (Auto) 0.0 Baso % (Auto) 0.2 Neut # (Auto) 8.40 H Lymph # (Auto) 0.70 L [place] # (Auto) 1.50 H Eos # (Auto) 0.00 Baso # (Auto) 0.02 INR Sodium 128 L Potassium 3.7 Chloride 98 Carbon Dioxide 22 BUN 15 Creatinine 0.6 Estimated Creat Clear 61.03 Estimated GFR 95 Glucose 138 H Lactate 1.6 Calcium 9.7 Magnesium Total Bilirubin 1.6 H AST 30 ALT 27 Alkaline Phosphatase 68 Total Protein 7.1 Albumin 4.1 TSH Urine Color Urine Appearance Urine pH Ur Specific [place] Urine Protein Urine Glucose (UA) Urine Ketones Urine Blood Urine Nitrite Urine Bilirubin Urine Urobilinogen Ur Leukocyte Esterase Urine RBC Urine WBC Ur Squamous Epith Cells Urine Bacteria SARS-CoV-2 Ag (Rapid) 09/13/22 09/13/22 09/13/22 02:00 07:28 07:28 WBC 9.91 RBC 3.65 L Hgb 11.9 L Hct 34.6 L MCV 95 MCH 33 MCHC 34 RDW Coeff of [place] 12.5 Plt Count 214 Neut % (Auto) 68.0 Lymph % (Auto) 12.5 L [place] % (Auto) 19.0 H Eos % (Auto) 0.1 Baso % (Auto) 0.2 Neut # (Auto) 6.74 Lymph # (Auto) 1.20 [place] # (Auto) 1.90 H Eos # (Auto) 0.01 Baso # (Auto) 0.02 INR Sodium 127 L Potassium 4.1 Chloride 97 Carbon Dioxide 26 BUN 14 Creatinine 0.6 Estimated Creat Clear 61.03 Estimated GFR 95 Glucose 117 H Lactate Calcium 9.4 Magnesium 1.5 Total Bilirubin 1.7 H AST 27 ALT 24 Alkaline Phosphatase 55 Total Protein 6.4 Albumin 3.6 TSH Urine Color Urine Appearance Urine pH Ur Specific [place] Urine Protein Urine Glucose (UA) Urine Ketones Urine Blood Urine Nitrite Urine Bilirubin Urine Urobilinogen Ur Leukocyte Esterase Urine RBC Urine WBC Ur Squamous Epith Cells Urine Bacteria SARS-CoV-2 Ag (Rapid) negative 09/13/22 09/13/22 09/13/22 07:28 07:28 08:30 WBC RBC Hgb Hct MCV MCH MCHC RDW Coeff of [place] Plt Count Neut % (Auto) Lymph % (Auto) [place] % (Auto) Eos % (Auto) Baso % (Auto) Neut # (Auto) Lymph # (Auto) [place] # (Auto) Eos # (Auto) Baso # (Auto) INR 2.37 H Sodium Potassium Chloride Carbon Dioxide BUN Creatinine Estimated Creat Clear Estimated GFR Glucose Lactate Calcium Magnesium Total Bilirubin AST ALT Alkaline Phosphatase Total Protein Albumin TSH 2.060 Urine Color [place] A Urine Appearance Clear Urine pH 7.0 Ur Specific [place] 1.015 Urine Protein Negative Urine Glucose (UA) Negative Urine Ketones Negative Urine Blood Trace-intact A Urine Nitrite Negative Urine Bilirubin Negative Urine Urobilinogen 1.0 Ur Leukocyte Esterase Negative Urine RBC 2-5 A Urine WBC 0-2 Ur Squamous Epith Cells Few Urine Bacteria None SARS-CoV-2 Ag (Rapid)
--- NOTE | 2022-09-13 16:38 | PC.NURSE ---
Transfer. Pt left @ 1635 with [facility]. ALS transfer to ICU at [facility]. pt had defib pads on. amiodarone drip @ 33mls and tele on. Pt has [address]. Pt is very pleasant and calm. episodes of V -tact stopped when the loading dose of amiodarone was started. pt has V-Tach runs 5-30 seconds on and off. he can feel when it happens. he said I feel weird. I can feel my heart speed up. he has been stable while on the drips. VS monitor every 15 minutes. md was updated. Pt VSS HR is irreg he is A-Fib. LSC . Patient has right arm pain and left knee minimal pain. from falls fall at home. He is up 1 assist, walker, gb. he was hard wire so we can see heart monitor in the room. Pt is eating and voiding. Inocencia and levi confirmed the drips and rates. he also got a dose of Mag.
== END 2022-09-13 16:30 ==
LOC: ED 02:15 → MEDSURG 02:50
PROVIDERS: Family Medicine; Internal Medicine; Admitting Provider Internal Medicine; Emergency Provider Internal Medicine; PCP Internal Medicine; Visit Provider Internal Medicine
DX: R55 Syncope and collapse (principal); I47.20 Ventricular tachycardia, unspecified; E87.1 Hypo-osmolality and hyponatremia; D64.9 Anemia, unspecified; Z51.81 Encounter for therapeutic drug level monitoring; Z96.643 Presence of artificial hip joint, bilateral; Z87.891 Personal history of nicotine dependence; I10 Essential (primary) hypertension; Z79.01 Long term (current) use of anticoagulants; R25.1 Tremor, unspecified; I49.8 Other specified cardiac arrhythmias; E78.5 Hyperlipidemia, unspecified; I48.91 Unspecified atrial fibrillation; I25.10 Atherosclerotic heart disease of native coronary artery without angina pectoris; M25.562 Pain in left knee; R40.20 Unspecified coma
CPT/HCPCS: 36415; 70450; 80053; 81003; 81015; 83605; 83735; 83930; 83935; 84300; 84443; 85025; 85610; 87426; 93005; 93306; 94761; 96365; 96366; 96375; 97110; 97116; 97162; 99283; 99285; G0378; A9270; J0282; J3475

== ENCOUNTER 2022-09-13 16:24 | Outpatient (CLI) | payer MEDICARE, BC, SELFPAY | END 2022-09-13 16:25 | disposition home or self-care (01) | LOC: AMB 09-17 09:13 | PROVIDERS: PCP Internal Medicine; Visit Provider Family Medicine | DX: I49.9 Cardiac arrhythmia, unspecified (principal) | CPT/HCPCS: A0425; A0434 ==

== ENCOUNTER 2022-12-10 11:42 | Outpatient (CLI) | payer MEDICARE, BC, SELFPAY | END 2022-12-10 11:43 | disposition home or self-care (01) | LOC: NFLDREF 12-12 01:48 | PROVIDERS: PCP Internal Medicine; Referring Provider Internal Medicine; Visit Provider Internal Medicine | DX: I48.91 Unspecified atrial fibrillation (principal); R05.9 Cough, unspecified; Z95.0 Presence of cardiac pacemaker | CPT/HCPCS: 85610 ==

== ENCOUNTER 2022-12-26 08:15 | Outpatient (CLI) | payer MEDICARE, BC, SELFPAY | END 2022-12-26 08:16 | disposition home or self-care (01) | LOC: NFLDREF 12-29 11:59 | PROVIDERS: PCP Internal Medicine; Referring Provider Internal Medicine; Visit Provider Internal Medicine | DX: Z79.01 Long term (current) use of anticoagulants (principal) | CPT/HCPCS: 85610 ==

== ENCOUNTER 2023-01-01 18:10 | Outpatient (CLI) | payer MEDICARE, BC, SELFPAY | END 2023-01-01 18:11 | disposition home or self-care (01) | LOC: AMB 01-05 10:02 | PROVIDERS: PCP Internal Medicine; Visit Provider Emergency Medicine Emergency Medical Services | DX: S09.90XA Unspecified injury of head, initial encounter (principal); R42 Dizziness and giddiness; W18.39XA Other fall on same level, initial encounter; Y92.480 Sidewalk as the place of occurrence of the external cause | CPT/HCPCS: A0425; A0427 ==

== ENCOUNTER 2023-01-01 18:32 | Emergency (ER) | payer MEDICARE, BC, SELFPAY ==
[2023-01-01] VITALS (24 sets, daily range): BP systolic 114–180; BP diastolic 86–136; PULSE 56–71; RESP 20; TEMP 36.1; O2SAT 96–100
--- NOTE | 2023-01-01 18:39 | CRLHL7_ITS ---
For Patients: As a result of the Century Cures Act, medical imaging exams and procedure reports are released immediately into your electronic medical record. You may view this report before your referring provider. If you have questions, please contact your health care provider. INDICATION: Fall TECHNIQUE: CT cervical spine without contrast. COMPARISON: Cervical spine CT 08/21/2022 FINDINGS: Vertebrae: Alignment is normal. There are no fractures or suspicious bony lesions. Discs and facet joints: Facet hypertrophy C2-3 without significant stenosis. Facet hypertrophy C3-4 with posterior osteophytes causing severe left foraminal stenosis. Facet hypertrophy C4-5 without significant stenosis. Facet hypertrophy C5-6 with posterior osteophytes causing moderate bilateral foraminal stenosis. Facet hypertrophy with posterior osteophytes at C6-7 causing mild bilateral foraminal stenosis. Facet hypertrophy C7-T1 without significant stenosis. Extraspinal findings: Atherosclerosis. Pacemaker lead partially included on the examination. Biapical pleural parenchymal scarring. IMPRESSION: Multilevel degenerative changes cervical spine without evidence of cervical spine fracture. Please note that all CT scans at this facility use dose modulation, iterative reconstruction, and/or weight-based dosing when appropriate to reduce radiation dose to as low as reasonably achievable. Dictated by Piter Damon MD @ 01/01/2023 7:35:36 PM (Electronically Signed)
--- NOTE | 2023-01-01 18:39 | CRLHL7_ITS ---
For Patients: As a result of the Century Cures Act, medical imaging exams and procedure reports are released immediately into your electronic medical record. You may view this report before your referring provider. If you have questions, please contact your health care provider. INDICATION: Fall on blood thinners TECHNIQUE: CT head without contrast. COMPARISON: Head CT 09/13/2022 FINDINGS: CSF spaces: Within normal limits for age. Brain parenchyma: No intracranial bleed or mass effect. Hernandez-white differentiation is distinct. Skull base and calvarium: Right periorbital subcutaneous hematoma. No evidence of fracture or globe rupture. IMPRESSION: Right periorbital subcutaneous hematoma without evidence of fracture or intracranial bleed. Please note that all CT scans at this facility use dose modulation, iterative reconstruction, and/or weight-based dosing when appropriate to reduce radiation dose to as low as reasonably achievable. Dictated by Piter Damon MD @ 01/01/2023 7:28:47 PM (Electronically Signed)
--- NOTE | 2023-01-01 18:41 | ED.GENADULT ---
HPI - General Adult General Time Seen by Provider: 18:41 Date Seen: 01/01/23 Chief complaint: Fall/Minor Trauma Stated complaint: Head strike Time Seen by Provider: 01/01/23 18:39 Source: patient, RN notes reviewed and old records reviewed Mode of arrival: EMS Limitations: no limitations History of Present Illness HPI narrative: Meek a very pleasant 87-year-old male with a history of atrial fibrillation, history of ventricular tachycardia and now with pacer and defibrillator placement who comes to the emergency room for evaluation regarding fall. Patient was noted to have been out to eat with his divya and enjoyed 2 drinks. She went to get the car and when she came around to pick him up he had fallen onto his face. He states that he has been lightheaded recently and when he left the restaurant felt lightheaded and then ended up falling. He fell onto the right side of his face and complains of right facial pain and right hand pain. He thinks that he may have been on conscious for a short period of [id number] his states that he was awake when she helped him up. EMS was called and he was transported to the [facility]. Here in the emergency room patient denies chest pain, headache, neck pain or back pain. Given the fact that he is on anticoagulation and had a head injury he was sent immediately to CT for head and cervical spine CTs. Related Data Home Medications Medication Instructions Recorded Confirmed metoprolol succinate 50 mg 50 mg PO DAILY 09/13/22 12/10/22 tablet,extended release 24 hr Previous Rx's Medication Instructions Recorded warfarin 5 mg tablet 5 mg PO QDAY Atrial Fibrillation 03/27/22 #90 tabs tamsulosin 0.4 mg capsule 0.4 mg PO QDAY #90 caps 07/11/22 hydrochlorothiazide 12.5 mg tablet 12.5 mg PO QAM Hypertension #90 10/20/22 tabs atorvastatin 40 mg tablet 40 mg PO QDAY #90 tabs 12/12/22 amiodarone 200 mg tablet 200 mg PO BID Ventricular 12/16/22 Tachycardia #180 tabs lisinopril 20 mg tablet 20 mg PO QDAY Hypertension #90 tabs 12/19/22 amoxicillin 875 mg-potassium 1 tab PO BID #13 tabs 01/01/23 clavulanate 125 mg tablet Allergies Allergy/AdvReac Type Severity Reaction Status Date / Time Cephalosporins Allergy Mild Hives Verified 12/10/22 11:23 Review of Systems Status of ROS: Reports: 10 or more systems reviewed and unremarkable except as noted in History and below Const: Denies: fever or chills Eyes: Denies: change in vision ENMT: Denies: throat pain or neck pain Cardio: Reports: lightheadedness; Denies: chest pain, palpitations, swelling of feet/ankles or shortness of breath with exertion Resp: Denies: shortness of breath or cough GI: Denies: abdominal pain, nausea or vomiting Musculo: Reports: extremity pain (Right hand); Denies: back pain or neck pain Neuro: Denies: headache or numbness in extremities PFSH PFS Medical History Pacemaker ?Z95.0 - Presence of cardiac pacemaker (ICD-10) Pseudogout of knee ?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 - Other chondrocalcinosis, unspecified knee (ICD-10) COVID-19 ?U07.1 - COVID-19 (ICD-10) 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 (ICD-10) Syncope ?R55 - Syncope and collapse (ICD-10) Atrial fibrillation ?I48.91 - Unspecified atrial fibrillation (ICD-10) Surgical History History of carpal tunnel surgery of left wrist (08/13/18) ?Z98.890 - Other specified postprocedural states (ICD-10) History of carpal tunnel surgery of right wrist (02/10/19) ?Z98.890 - Other specified postprocedural states (ICD-10) 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) ?Z96.642 - Presence of left artificial hip joint (ICD-10) History of total replacement of both hip joints ?Z96.643 - Presence of artificial hip joint, bilateral (ICD-10) Social History Highest level of school completed/degree received: Doctoral degree Smoking Status: Former smoker Do you use any of these nicotine containing products: None Second hand tobacco smoke exposure: No How often do you have a drink containing alcohol: 4 or more times a week Alcohol type: wine and hard liquor How many standard drinks containing alcohol do you have on a typical day: 1 or 2 How often do you have six or more drinks on one occasion: Never AUDIT-C Alcohol total score: 4 Non-prescribed substance use: denies use Caffeine: Yes Little interest or pleasure in doing things: several days Feeling down, depressed, or hopeless: not at all service: Yes Exam Narrative: Exam Narrative: Patient is alert and oriented. Mentating normally with a GCS of 15. He has extensive swelling around the right eye with soft tissue edema of the right upper lid as well as right cheek. He has a superficial laceration measuring approximately 1 cm on the right eyelid. Just beneath the eye is a 2.5 mm laceration both of these areas are oozing. Superficial abrasion on the right cheek as well as the chin. Head is otherwise atraumatic. No cervical midline tenderness with palpation. Heart is with an irregularly irregular rhythm and normal rate. Lungs are clear bilaterally, abdomen soft nontender Lower extremities are moving. Right hand shows multiple areas of ecchymosis and superficial abrasion. Patient is able to make a fist. Patient does open his right eye and he has subconjunctival hemorrhage. Cornea appears to be normal. When asked patient states his eyesight is actually better in his right eye than his left. Const: Vital Signs, click to edit/add: Vital Signs - 24 hr 01/01/23 18:32 01/01/23 18:58 01/01/23 19:00 Temperature 97.0 F L Pulse Rate 66 62 Pulse Rate [Apical ] 71 Respiratory Rate Blood Pressure 180/104 H Blood Pressure [Ri ght Upper Arm] 180/104 H Pulse Oximetry 98 98 01/01/23 19:02 01/01/23 19:03 01/01/23 19:15 Temperature Pulse Rate 61 58 L 57 L Pulse Rate [Apical ] Respiratory Rate Blood Pressure 171/88 H Blood Pressure [Ri ght Upper Arm] Pulse Oximetry 98 98 98 01/01/23 20:02 01/01/23 20:06 01/01/23 20:15 Temperature Pulse Rate 63 60 56 L Pulse Rate [Apical ] Respiratory Rate Blood Pressure 153/88 H Blood Pressure [Ri ght Upper Arm] Pulse Oximetry 99 99 100 01/01/23 20:35 01/01/23 20:57 01/01/23 21:00 Temperature Pulse Rate 58 L 60 Pulse Rate [Apical ] Respiratory Rate Blood Pressure 154/92 H Blood Pressure [Ri ght Upper Arm] Pulse Oximetry 98 98 01/01/23 21:02 01/01/23 21:18 01/01/23 21:30 Temperature Pulse Rate 61 61 65 Pulse Rate [Apical ] Respiratory Rate Blood Pressure 161/136 H Blood Pressure [Ri ght Upper Arm] Pulse Oximetry 98 98 99 01/01/23 21:32 01/01/23 21:45 01/01/23 22:00 Temperature Pulse Rate 60 62 64 Pulse Rate [Apical ] Respiratory Rate Blood Pressure 163/104 H Blood Pressure [Ri ght Upper Arm] Pulse Oximetry 97 97 98 01/01/23 22:02 01/01/23 22:03 01/01/23 22:15 Temperature Pulse Rate 63 57 L 60 Pulse Rate [Apical ] Respiratory Rate Blood Pressure 114/86 Blood Pressure [Ri ght Upper Arm] Pulse Oximetry 98 98 97 01/01/23 22:30 01/01/23 22:32 01/01/23 23:25 Temperature 97 F L Pulse Rate 63 64 66 Pulse Rate [Apical ] Respiratory Rate 20 Blood Pressure 141/91 H 141/91 H Blood Pressure [Ri ght Upper Arm] Pulse Oximetry 99 96 98 Documenting provider has reviewed patient's vital signs: yes Course Course Hospital Course: Patient sent back to Radiology for facial CT as he does have significant swelling and trauma to the right side of his face. Currently mentating normally and I do not identify any intracranial bleed or skull fracture on CT. Will check labs to include CBC, comprehensive, troponin, INR, urinalysis as well as EKG and chest x-ray. Reevaluation(s) Reevaluation #1: CT and cervical spine without any acute injury. Facial CT does show as sinus fracture right maxillary with minimal displacement. I spoke briefly with our ENT who does suggest Keflex or Augmentin as antibiotic. As patient has had a past history of hives from IV cephalosporin will use Augmentin and 1st dose is given here tonight. Patient has continued oozing from the areas on if his face. Currently checking troponins. Reevaluation #2: Troponin negative x2 and EKGs are reassuring. Dermabond is used for the superficial lacerations , 1. On the upper eyelid. A and 2. On the right cheek bone. This does considerably help that losing to decrease. Vital Signs Vital signs: Initial Vital Signs Temperature 97.0 F L 01/01/23 18:32 Temperature Source Temporal Artery Scan 01/01/23 18:32 Pulse Rate 71 01/01/23 18:32 Blood Pressure 180/104 H 01/01/23 18:32 Blood Pressure Mean 129 H 01/01/23 18:32 Blood Pressure Position Sitting 01/01/23 18:32 Vital Signs Temperature 97.0 F L 01/01/23 18:32 Pulse Rate 71 01/01/23 18:32 Blood Pressure 180/104 H 01/01/23 18:32 Temperature 97 F L 01/01/23 23:25 Pulse Rate 66 01/01/23 23:25 Respiratory Rate 20 01/01/23 23:25 Blood Pressure 141/91 H 01/01/23 23:25 Pulse Oximetry 98 01/01/23 23:25 Medical Decision Making MDM Narrative Medical decision making narrative: 1. Facial trauma-sinus fracture. Discussed with ENT. Patient will be continued on Augmentin 875 mg p.o. b.i.d. for 7 days. Tylenol as needed for discomfort. 2. Fall with lightheadedness -normal saline given here in the ED. prior to departure after having been in bed for an extended period of time we did have patient walk and he is ambulating without any difficulty or lightheadedness at this time. Lightheadedness may be secondary to mild dehydration with the use of alcohol. Would ask that he discontinue alcohol at this time and continue to monitor. Follow up with his primary MD for ongoing evaluation as needed. No evidence of arrhythmia that should causes lightheadedness. Although he is in atrial fibrillation it is rate controlled troponin is negative x2 as there is no evidence of an acute coronary event. 3. Anticoagulation-INR is 2.75. 4. Disposition-home at this time. Patient feels comfortable going home and his is very attentive. Return to the emergency room for return of lightheadedness, fall and as needed. Laboratory values are reassuring with a normal white count, hemoglobin 11.2, electrolytes and urinalysis with no evidence of UTI. A level was 0.08. Troponin was negative x2. Will contact patient in the morning to remind them of an INR check as INR will likely rise with the use of antibiotic. And will also check tetanus status. Medical Records Medical records reviewed: Yes I reviewed the patient's medical records Lab Data Lab results reviewed: Yes I reviewed the patient's lab results Labs: Lab Results 01/01/23 01/01/23 01/01/23 Range/Units 20:25 21:20 22:05 WBC 6.96 (4.50-11.00) K/uL RBC 3.56 L (4.30-5.90) m/uL Hgb 11.2 L (13.5-17.5) gm/dL Hct 33.4 L (37.0-53.0) % MCV 94 (80-100) fL MCH 32 (26-34) pg MCHC 34 (32-36) gm/dL RDW Coeff of Geronimo 16.0 H (11.5-15.5) % Plt Count 211 (140-440) K/uL Neut % (Auto) 66.8 (42.0-72.0) % Lymph % (Auto) 13.1 L (20-44) % [place]yenne % (Auto) 18.0 H (0.0-11.0) % Eos % (Auto) 1.4 (0.0-7.0) % Baso % (Auto) 0.6 (0.0-3.0) % Neut # (Auto) 4.65 (1.7-7.0) K/uL Lymph # (Auto) 0.90 (0.90-2.90) K/uL [place] # (Auto) 1.30 H (0.00-0.90) K/UL Eos # (Auto) 0.10 (0.00-0.50) K/uL Baso # (Auto) 0.04 (0.00-0.30) K/uL INR 2.73 H (0.91-1.10) Sodium 133 L (135-149) mmol/L Potassium 3.4 L (3.6-5.1) mmol/L Chloride 102 (96-114) mmol/L Carbon Dioxide 22 (20-32) mmol/L BUN 11 (7-30) mg/dL Creatinine 0.7 (0.5-1.5) mg/dL Estimated GFR 90 ml/min Glucose 98 (60-115) mg/dL Calcium 9.1 (8.4-10.6) mg/dL Total Bilirubin 0.8 (0.1-1.5) mg/dL AST 70 H (12-35) U/L ALT 77 H (4-50) U/L Alkaline Phosphatase 73 (40-150) U/L Total Protein 6.6 (6.0-8.3) g/dL Albumin 3.6 (3.3-5.0) g/dL Urine Color Yellow (Yellow) Urine Appearance Clear (Clear) Urine pH 7.0 (5.0-8.5) Ur Specific Jay 1.015 (1.000-1.030) Urine Protein Negative (Negative) Urine Glucose (UA) Negative (Negative) Urine Ketones Negative (Negative) Urine Blood Negative (Negative) Urine Nitrite Negative (Negative) Urine Bilirubin Negative (Negative) Urine Urobilinogen 4.0 A (0.2-1.0) Ur Leukocyte Esterase Negative (Negative) Urine RBC 0-2 (0-2) Urine WBC 0-2 (0-5) Ur Squamous Epith Cells None (None-Few) Urine Bacteria None (None) Ethyl Alcohol 0.08 H (0.01-0.03) % POC Troponin I 0.00 L 0.01 (0.01-0.04) ng/ml Imaging Data CT scan - head: Attestation: I have reviewed the pertinent imaging results. Radiologist's impression: CSF spaces: Within normal limits for age. Brain parenchyma: No intracranial bleed or mass effect. Hernandez-white differentiation is distinct. Skull base and calvarium: Right periorbital subcutaneous hematoma. No evidence of fracture or globe rupture. IMPRESSION: Right periorbital subcutaneous hematoma without evidence of fracture or intracranial bleed. Cervical spine CT: Attestation: I have reviewed the pertinent imaging results. Radiologist's impression: Discs and facet joints: Facet hypertrophy C2-3 without significant stenosis. Facet hypertrophy C3-4 with posterior osteophytes causing severe left foraminal stenosis. Facet hypertrophy C4-5 without significant stenosis. Facet hypertrophy C5-6 with posterior osteophytes causing moderate bilateral foraminal stenosis. Facet hypertrophy with posterior osteophytes at C6-7 causing mild bilateral foraminal stenosis. Facet hypertrophy C7-T1 without significant stenosis. Extraspinal findings: Atherosclerosis. Pacemaker lead partially included on the examination. Biapical pleural parenchymal scarring. IMPRESSION: Multilevel degenerative changes cervical spine without evidence of cervical spine fracture. Facial CT: Attestation: I have reviewed the pertinent imaging results. Radiologist's impression: Facial bones: There is a fracture of the anterior wall of the right maxillary sinus with 1 millimeter posterior displacement. Orbits and globes: Unremarkable. Globes are intact. No sign of intraorbital hemorrhage or emphysema. Sinuses: Trace fluid in the right maxillary sinus. Soft tissues: Right periorbital subcutaneous hematoma. IMPRESSION: Right periorbital subcutaneous hematoma with minimally displaced fracture of the anterior wall right maxillary sinus. Chest x-ray: Attestation: I have reviewed the pertinent imaging results. My impression: No obvious infiltrates Radiologist's impression: ardiovascular and mediastinum:? Prominent heart size. Unremarkable vasculature. Left chest wall pacemaker device. Lungs and pleural spaces:? Lungs are clear.? No sign of infiltrate or mass. ?No sign of pleural effusion.? No pneumothorax.? Bones and soft tissues:? No significant findings. IMPRESSION: No acute or significant findings. Hand x-ray: Attestation: I have reviewed the pertinent imaging results. Radiologist's impression: There is no sign of fracture or dislocation. The soft tissues are normal in appearance without sign of radio-opaque foreign body. 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 No additional degenerative changes are evident. IMPRESSION: No sign of acute osseous injury. 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 ECG Data Attestation: I personally reviewed and interpreted this ECG as follows: Interpretation: EKG by my read shows atrial fibrillation at a rate of 62. No acute ST or T-wave changes are noted. Discharge Plan Discharge Clinical Impression: Near syncope, Maxillary sinus fracture, Fall Patient Disposition: Home w/ Parent or Adult Condition: Improved Additional Instructions: Recommend continuing Augmentin twice daily for 7 days. This is for the sinus fracture. Avoid alcohol. Push fluids. Return or seek medical attention for worsening symptoms. Follow up with Dr. Rodas for recheck. Prescriptions: New amoxicillin-pot clavulanate 875-125 mg tablet 1 tab PO BID Qty: 13 0RF No Action hydrochlorothiazide 12.5 mg tablet 12.5 mg PO QAM Qty: 90 3RF metoprolol succinate 50 mg tablet extended release 24 hr 50 mg PO DAILY warfarin 5 mg tablet 5 mg PO QDAY Qty: 90 3RF Protocol: Dose Management Condition: Thursday Dose/Route: 2.5 mg Instruction: 0.5 x 5 mg tablets Condition: Thursday Dose/Route: 2.5 mg Instruction: 0.5 x 5 mg tablets Condition: Thursday Dose/Route: 2.5 mg Instruction: 0.5 x 5 mg tablets Condition: Thursday Dose/Route: 2.5 mg Instruction: 0.5 x 5 mg tablets Condition: Dose/Route: 2.5 mg Instruction: 0.5 x 5 mg tablets Condition: Thursday Dose/Route: 2.5 mg Instruction: 0.5 x 5 mg tablets Condition: Thursday Dose/Route: 2.5 mg Instruction: 0.5 x 5 mg tablets Protocol Text: Adjustment Start Date: Thursday12/26/22 INR Value: 4.73 INR Date: 12/26/22 Recheck Date: 01/09/23 Additional Instructions: hold 2 doses 12/26 & 12/27, then start 2.5mg daily tamsulosin 0.4 mg capsule 0.4 mg PO QDAY Qty: 90 1RF atorvastatin 40 mg tablet 40 mg PO QDAY Qty: 90 0RF amiodarone 200 mg tablet 200 mg PO BID Qty: 180 3RF lisinopril 20 mg tablet 20 mg PO QDAY Qty: 90 0RF Follow Up/Referrals: Raudel Rodas MD [Primary Care Provider] - Stand Alone Forms: [facility] Info Instructions
--- NOTE | 2023-01-01 19:13 | CRLHL7_ITS ---
For Patients: As a result of the Century Cures Act, medical imaging exams and procedure reports are released immediately into your electronic medical record. You may view this report before your referring provider. If you have questions, please contact your health care provider. INDICATION: Hand pain after trauma. COMPARISON: None available. TECHNIQUE: The right hand is examined with PA and lateral views. FINDINGS: There is no sign of fracture or dislocation. The soft tissues are normal in appearance without sign of radio-opaque foreign body. 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 No additional degenerative changes are evident. IMPRESSION: No sign of acute osseous injury. 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 Dictated by Darío Ford MD @ 01/01/2023 8:20:06 PM (Electronically Signed)
--- NOTE | 2023-01-01 19:13 | CRLHL7_ITS ---
For Patients: As a result of the Century Cures Act, medical imaging exams and procedure reports are released immediately into your electronic medical record. You may view this report before your referring provider. If you have questions, please contact your health care provider. INDICATION: Chest pain. TECHNIQUE: Chest 1 views. COMPARISON: None. FINDINGS: Cardiovascular and mediastinum: Prominent heart size. Unremarkable vasculature. Left chest wall pacemaker device. Lungs and pleural spaces: Lungs are clear. No sign of infiltrate or mass. No sign of pleural effusion. No pneumothorax. Bones and soft tissues: No significant findings. IMPRESSION: No acute or significant findings. Dictated by Elliot Siddiqui MD @ 01/01/2023 8:24:40 PM (Electronically Signed)
--- NOTE | 2023-01-01 19:13 | CRLHL7_ITS ---
For Patients: As a result of the Cures Act, medical imaging exams and procedure reports are released immediately into your electronic medical record. You may view this report before your referring provider. If you have questions, please contact your health care provider. INDICATION: Fall, facial injury TECHNIQUE: CT maxillofacial without contrast. COMPARISON: None FINDINGS: Facial bones: There is a fracture of the anterior wall of the right maxillary sinus with 1 millimeter posterior displacement. Orbits and globes: Unremarkable. Globes are intact. No sign of intraorbital hemorrhage or emphysema. Sinuses: Trace fluid in the right maxillary sinus. Soft tissues: Right periorbital subcutaneous hematoma. IMPRESSION: Right periorbital subcutaneous hematoma with minimally displaced fracture of the anterior wall right maxillary sinus. Please note that all CT scans at this facility use dose modulation, iterative reconstruction, and/or weight-based dosing when appropriate to reduce radiation dose to as low as reasonably achievable. Dictated by Piter Damon MD @ 01/01/2023 7:59:36 PM (Electronically Signed)
[2023-01-01] MEDS: 0.9 % SODIUM CHLORIDE 500 ML 500 ML IV (20:03)
[2023-01-01 20:35] LABS: Basophils Absolute Auto 0.04 K/uL (0.00-0.30); Basophils Percent Auto 0.6 % (0.0-3.0); Eosinophils Percent Auto 1.4 % (0.0-7.0); Hematocrit 33.4 % (37.0-53.0); Hemoglobin* 11.2 gm/dL (13.5-17.5); Immature Granulocytes Abs Auto 0.01 K/uL (0.00-0.30); Immature Granulocytes Pct Auto 0.1 %; Lymphocytes Percent Auto 13.1 % (20-44); Mean Corpuscular HGB Conc 34 gm/dL (32-36); Mean Corpuscular Hemoglobin 32 pg (26-34); Mean Corpuscular Volume 94 fL (80-100); Neutrophils Absolute Auto 4.65 K/uL (1.7-7.0); Neutrophils Percent Auto 66.8 % (42.0-72.0); Platelet Count* 211 K/uL (140-440); Red Blood Count 3.56 m/uL (4.30-5.90); White Blood Count* 6.96 K/uL (4.50-11.00)
[2023-01-01 20:37] LABS: Slide Review Reflex No
[2023-01-01 20:54] LABS: Albumin* 3.6 g/dL (3.3-5.0); Chloride* 102 mmol/L (96-114); Sodium* 133 mmol/L (135-149)
[2023-01-01 20:55] LABS: Potassium* 3.4 mmol/L (3.6-5.1)
[2023-01-01 20:56] LABS: Creatinine* 0.7 mg/dL (0.5-1.5); Estimated Glomerular Filt Rate 90 ml/min; INR 2.73 (0.91-1.10); Prothrombin Time 30.3 Seconds
[2023-01-01 20:57] LABS: Alanine Aminotransferase* 77 U/L (4-50); Alkaline Phosphatase* 73 U/L (40-150); Aspartate Amino Transferase* 70 U/L (12-35); Bilirubin Total* 0.8 mg/dL (0.1-1.5); Blood Urea Nitrogen* 11 mg/dL (7-30); Carbon Dioxide* 22 mmol/L (20-32); Glucose* 98 mg/dL (60-115); Total Protein* 6.6 g/dL (6.0-8.3)
[2023-01-01 20:58] LABS: Calcium* 9.1 mg/dL (8.4-10.6); Ethanol* 0.08 % (0.01-0.03)
[2023-01-01 21:27] LABS: Appearance Urine Clear (Clear); Bilirubin Urine Negative (Negative); Blood Urine Negative (Negative); Color Urine Yellow (Yellow); Glucose Urine Negative (Negative); Ketones Urine Negative (Negative); Leukocyte Esterase Urine Negative (Negative); Nitrite Urine Negative (Negative); Protein Urine Negative (Negative); Specific Gravity Urine 1.015 (1.000-1.030)
[2023-01-01 21:42] LABS: RBC Urine 0-2 (0-2); WBC Urine 0-2 (0-5)
[2023-01-01] MEDS: AMOXICILLIN/CLAVULANATE 875 mg/125 mg TABLET PO (22:15)
[2023-01-01 22:33] LABS: Troponin, Point-of-Care* 0.01 ng/ml (0.01-0.04)
--- NOTE | 2023-01-02 09:19 | ED.NURSE ---
Per Dr Aponte, pt was contacted, advised to have INR checked on Thursday due to antibiotic use. Pt understands and will make appointment. Also tetanus is up to date 11/07/21
== END 2023-01-01 23:24 | disposition home or self-care (01) ==
PROVIDERS: Emergency Provider Family Medicine; PCP Internal Medicine
DX: S02.40CA Maxillary fracture, right side, initial encounter for closed fracture (principal); W01.10XA Fall on same level from slipping, tripping and stumbling with subsequent striking against unspecified object, initial encounter; R55 Syncope and collapse
CPT/HCPCS: 36415; 70450; 70486; 71045; 72125; 73120; 80053; 81001; 82077; 84484; 85025; 85610; 93005; 99284; 99285; A9270; J7120

== ENCOUNTER 2023-01-20 14:15 | Outpatient (RCR) | payer MEDICARE, BC, SELFPAY ==
--- NOTE | 2022-12-04 17:22 | PT.OPEX ---
PT [place] Out[facility] Eval PT [facility] Outpatient Eval Start: 12/04/22 13:31 Freq: Status: Active Protocol: Document 12/04/22 13:32 [facility] (Rec: 12/04/22 14:31 [facility] [id number]) E-signed By Yonis Beaver PT Physical Therapy Outpatient Evaluation Insurance Information Insurance Name Medicare B Medical Diagnosis OA Left knee M17.12 Treating Diagnosis Left knee pain M25.562 Left knee stiffness M25.662 Unsteadiness on feet R26.[address] Dawson Helm Subjective Subjective Pt presents with left knee pain that started after a V- tach/seizure related fall ~2 months ago, onto his left knee . Per his , he continued to have what sounded like clonic seizures. He was admitted to the hospital and transferred to [place] for management of cardiac dysrhythmias. Since then, pt reports that knee pain is steadily improving. x-ray showed arthritis under patella and in knee. His pain is both on top of knee and medial side, mostly with weight bearing. Pt currently using FWW for ambulation. Able to walk ~100 yards w/ the walker. Not currently doing any exercises. Doesn't sleep well due to insomnia. Mild knee pain with turning in bed. PMH: significant for himanshu THAs, 2016 and . A-fib, pacemaker placed in last 2 months. Pain Comments 10/03 Date of Last Physician Visit 12/01/22 Current Work Status Retired Precautions Weight Bearing Status Weight Bear as Tolerated Therapy Limitations/Systems Review Other Medical Problem Objective Other/Pertinent Objective Balance: DLS: EO 30 sec w/ SBA EC 30 sec w/ close SBA/CGA, pt anxious and small imbalances Romberg stance: EO 30 sec w/ close SBA EC unble SLS: unable to attempt Strength: LEs: knee extension: R 5/5 L 4+/5, painfree Flexion: 5/5 himanshu Hip flexion: 4+/5 himanshu Hip ROM: L: IR 20 deg ER 35 deg R: IR 30 deg ER 50 deg Knee: AROM L: 0-10-115 deg R : 0-5-115 deg, PROM L knee extension to -5 deg LE coordination: mildly impaired with knee/howard/ankle test Functional Test Performed & Score Romberg: EO 30 sec/ EC unable to perform due to fear of falling Assessment Assessment/Impression 87 year old male referred to physical therapy for rehab of left knee pain due to OA/fall injury. He presents with mildy impaired ROM and strength left knee and mid pain. What is even more concerning is patient's impaired balance that is well below his baseline from two months ago. PLOF prior to two months ago, patient was able to ambulate I without an assistive device at home and in the community. At this time, he requires a walker (or furniture walking) for stability. Patient to benefit from skilled PT to both progress left knee ROM and strength as well as to work on balance and gait training to facilitate his return to PLOF. Primary Functional Limitations ambulation/weight bearing/ balance Plan of Care Rehabilitation Potential Excellent Physical Therapy Goals In 6-8 weeks, patient will: 1) Ambulate within his home I without the walker, left knee painfree 2) Ambulate short community distances with a SEC at the most and supervision 3) Ambulate up/down stairs with railing I Coordination/Communication With Referral Source Treatment Plan/Direct Interventions Gait Training,Manual Therapy, Neuromuscular Re-ed,Self-Care/ Home Management,Therapeutic Exercises Direct Interventions Clarification balance/motor control ex, gait Comments training, left LE ROM/ strengthening ex Frequency/Duration 1-2x/week for 6-8 weeks, up to 12 visits Patient Will Be Discharged From Therapy Completion of LTG(s), Independent w/HEP, Independently Progressing Evaluation Billing Untimed Code Treatment Minutes 25 Complexity Moderate Certification Information Initial Certification Date 12/04/22 Ending Certification Date 03/05/23 Provider Signature Shows Agreement With POC & Medical Necessity Physician Signature & Date Requested Please Sign/Date Here Physician Comment/Change : Physician NPI Number #
== END 2023-05-20 23:59 | disposition home or self-care (01) ==
PROVIDERS: PCP Internal Medicine; Visit Provider Orthopaedic Surgery
DX: M17.12 Unilateral primary osteoarthritis, left knee (principal); Z51.89 Encounter for other specified aftercare
CPT/HCPCS: 97110; 97112; 97116; 97162

== ENCOUNTER 2023-02-18 11:21 | Outpatient (CLI) | payer MEDICARE, BC, SELFPAY ==
[2023-02-18 11:31] VITALS: BP 152/79; PULSE 60; RESP 18; O2SAT 98
[2023-02-18] MEDS: TETRACAINE 0.5% OPHTH 1 DROP EYE-BOTH ×2 (11:32→11:37)
[2023-02-18] MEDS: BRIMONIDINE TARTRATE 0.2% OPHTH 1 DROP EYE-BOTH ×2 (11:34→12:16)
--- NOTE | 2023-02-18 12:44 | PM.PROC ---
Procedure Note Date Seen: 02/18/23 Will [facility] bill your pro fee for this procedure?: No Procedure: bilateral yag pc Procedure Description: Right eye pupil dilated topical anesthetic applied patient consented positioned in front of laser lens applied cruciform capsulotomy 37 pulses 2.2 Left eye pupil dilated topical anesthetic applied patient consented positioned in front of laser lens applied cruciform capsulotomy 62 pulses 2.2 No complications Good condition
== END 2023-02-18 12:28 | disposition home or self-care (01) ==
LOC: EYE PRC 11:21
PROVIDERS: PCP Internal Medicine; Visit Provider Ophthalmology
DX: H26.9 Unspecified cataract (principal)
CPT/HCPCS: 66821; A9270

== ENCOUNTER 2023-03-06 07:45 | Outpatient (CLI) | payer MEDICARE, BC, SELFPAY | END 2023-03-06 07:46 | disposition home or self-care (01) | LOC: NFLDREF 20:38 | PROVIDERS: PCP Internal Medicine; Referring Provider Internal Medicine; Visit Provider Internal Medicine | DX: E78.5 Hyperlipidemia, unspecified (principal) | CPT/HCPCS: 80061 ==

== ENCOUNTER 2023-03-13 21:28 | Outpatient (CLI) | payer MEDICARE, BC, SELFPAY | END 2023-03-13 21:29 | disposition home or self-care (01) | LOC: AMB 03-19 09:31 | PROVIDERS: PCP Internal Medicine; Visit Provider Internal Medicine | DX: R53.1 Weakness (principal) | CPT/HCPCS: A0425; A0427 ==

== ENCOUNTER 2023-03-13 22:05 | Emergency (ER) | payer MEDICARE, BC, SELFPAY ==
[2023-03-13] VITALS (11 sets, daily range): BP systolic 119–154; BP diastolic 70–96; PULSE 50–82; RESP 20; TEMP 36.6; O2SAT 94–98; BMI 24.4
--- NOTE | 2023-03-13 22:16 | CRLHL7_ITS ---
For Patients: As a result of the Century Cures Act, medical imaging exams and procedure reports are released immediately into your electronic medical record. You may view this report before your referring provider. If you have questions, please contact your health care provider. HISTORY: Syncope COMPARISON: Portable chest from 01/22/2023 FINDINGS: A portable erect AP view of the chest was obtained at 23 02 hours. The lungs remain clear. No focal or diffuse infiltrates are present. The heart remains normal in size. Again seen is a left-sided defibrillator with a single lead entering the left subclavian vein and terminating in the right ventricle. The mediastinum is normal in appearance. The osseous structures are normal in appearance for the patient`s age. IMPRESSION: No active disease seen in the chest. Dictated by Darío Ford MD @ 03/13/2023 11:27:51 PM (Electronically Signed)
--- NOTE | 2023-03-13 22:17 | ED_ITS ---
HPI - General Adult General Chief complaint: Fall/Minor Trauma Stated complaint: fall Time Seen by Provider: 03/13/23 22:16 History of Present Illness HPI narrative: Patient is 87-year-old gentleman well known to me with atrial fibrillation status post pacemaker for recurrent syncope who had a syncopal episode tonight after watching a movie. Patient felt well when outside and sat briefly after getting up and being expose the temperature change patient became lightheaded and fell to the ground. He is not certain that he completely lost consciousness and did not hit his head. He does have pain in his right scapula. He did not feel the pacemaker paced or fire. He has had no other recent symptoms and otherwise has been feeling very well since having the pacemaker placed. He has had no recent bruising or bleeding no neurologic symptoms no fevers no chills otherwise been in his usual state of health. Patient was unable to get up EMS brought him in and he is stable with atrial fibrillation with no acute abnormalities on his EKG. Related Data Previous Rx's Medication Instructions Recorded warfarin 5 mg tablet 5 mg PO QDAY Atrial Fibrillation 03/27/22 #90 tabs hydrochlorothiazide 12.5 mg tablet 12.5 mg PO QAM Hypertension #90 10/20/22 tabs amiodarone 200 mg tablet 200 mg PO BID Ventricular 12/16/22 Tachycardia #180 tabs amoxicillin 875 mg-potassium 1 tab PO BID #13 tabs 01/01/23 clavulanate 125 mg tablet tamsulosin 0.4 mg capsule 0.4 mg PO QDAY #90 caps 01/16/23 atorvastatin 40 mg tablet 40 mg PO QDAY Hyperlipidemia #90 03/09/23 tabs metoprolol succinate 50 mg 50 mg PO DAILY #90 tabs 03/09/23 tablet,extended release 24 hr lisinopril 20 mg tablet 20 mg PO QDAY Hypertension #90 tabs 03/11/23 Allergies Allergy/AdvReac Type Severity Reaction Status Date / Time Cephalosporins Allergy Mild Hives Verified 02/03/23 10:01 Review of Systems Status of ROS: Reports: 10 or more systems reviewed and unremarkable except as noted in History and below [facility] Medical History Pacemaker ?Z95.0 - Presence of cardiac pacemaker (ICD-10) Pseudogout of knee ?M11.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 - Other chondrocalcinosis, unspecified knee (ICD-10) COVID-19 ?U07.1 - COVID-19 (ICD-10) 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 (ICD-10) Syncope ?R55 - Syncope and collapse (ICD-10) Atrial fibrillation ?I48.91 - Unspecified atrial fibrillation (ICD-10) Surgical History History of carpal tunnel surgery of left wrist (08/13/18) ?Z98.890 - Other specified postprocedural states (ICD-10) History of carpal tunnel surgery of right wrist (02/10/19) ?Z98.890 - Other specified postprocedural states (ICD-10) 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) ?Z96.642 - Presence of left artificial hip joint (ICD-10) History of total replacement of both hip joints ?Z96.643 - Presence of artificial hip joint, bilateral (ICD-10) Social History Highest level of school completed/degree received: Doctoral degree Smoking Status: Former smoker Do you use any of these nicotine containing products: None Second hand tobacco smoke exposure: No How often do you have a drink containing alcohol: 4 or more times a week Alcohol type: wine and hard liquor How many standard drinks containing alcohol do you have on a typical day: 1 or 2 How often do you have six or more drinks on one occasion: Never AUDIT-C Alcohol total score: 4 Non-prescribed substance use: denies use Caffeine: Yes Little interest or pleasure in doing things: not at all Feeling down, depressed, or hopeless: not at all service: Yes Exam Narrative: Exam Narrative: EXAM GENERAL: Patient appears comfortable and well. EYES: No scleral icterus. ENT: Tympanic membranes and oropharynx normal. THYROID: no thyroid nodules or thyromegaly. LYMPH: No supraclavicular or cervical lymphadenopathy. SKIN: Visible skin seen during exam normal or with benign process only. EXT: No dependent lower extremity pedal edema. HEART: Regular rate and rhythm with no murmurs, rubs, or gallops. Pacemaker in place. LUNGS: Clear to auscultation bilaterally with no crackles or wheezes. ABD: Soft, non tender, non distended. PSYCH: Good eye contact, speech is not pressured. Const: Vital Signs, click to edit/add: Vital Signs - 24 hr 03/13/23 22:13 Temperature 97.8 F Pulse Rate [Right Pulse Oximeter] 82 Respiratory Rate 20 Blood Pressure [Le ft Upper Arm] 154/96 H Pulse Oximetry 94 Oxygen Delivery Me thod Room Air Course Course Hospital Course: CBC CMP troponin INR EKG portable chest x-ray ordered. Vital Signs Vital signs: Initial Vital Signs Temperature 97.8 F 03/13/23 22:13 Temperature Source Temporal Artery Scan 03/13/23 22:13 Pulse Rate 82 03/13/23 22:13 Pulse Rhythm Irregular 03/13/23 22:13 Respiratory Rate 20 03/13/23 22:13 Blood Pressure 154/96 H 03/13/23 22:13 Blood Pressure Mean 115 H 03/13/23 22:13 Blood Pressure Position Semi-Fowlers 03/13/23 22:13 Pulse Oximetry 94 03/13/23 22:13 Oxygen Delivery Method Room Air 03/13/23 22:13 Vital Signs Temperature 97.8 F 03/13/23 22:13 Pulse Rate 82 03/13/23 22:13 Respiratory Rate 20 03/13/23 22:13 Blood Pressure 154/96 H 03/13/23 22:13 Pulse Oximetry 94 03/13/23 22:13 Oxygen Delivery Method Room Air 03/13/23 22:13 Temperature 97.8 F 03/13/23 22:13 Pulse Rate 82 03/13/23 22:13 Respiratory Rate 20 03/13/23 22:13 Blood Pressure 154/96 H 03/13/23 22:13 Pulse Oximetry 94 03/13/23 22:13 Oxygen Delivery Method Room Air 03/13/23 22:13 Medical Decision Making MDM Narrative Medical decision making narrative: Patient is 87-year-old gentleman well-known to be used got a pacemaker in place for syncope who had what appears to be a vasovagal syncope after going from a cool apartment to a warm patio. Patient does not appear to be injured. He did not hit his head he did not completely lose consciousness. Patient does have hyponatremia. He is anticoagulated but is subtherapeutic with an INR 1.54. Jeferson greenwood is neurologically intact. We did do a chest x-ray do not see any injuries to his chest wall. 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 Plan see him in 4 days with her INR and basic metabolic panel. Differential Diagnosis Differential Diagnosis: Syncope heart arrhythmia acute myocardial infarction sepsis Lab Data Labs: Lab Results 03/13/23 Range/Units 22:30 WBC 6.12 (4.50-11.00) K/uL RBC 3.88 L (4.30-5.90) m/uL Hgb 12.6 L (13.5-17.5) gm/dL Hct 36.9 L (37.0-53.0) % MCV 95 (80-100) fL MCH 33 (26-34) pg MCHC 34 (32-36) gm/dL RDW Coeff of Geronimo 14.2 (11.5-15.5) % Plt Count 197 (140-440) K/uL Neut % (Auto) 58.6 (42.0-72.0) % Lymph % (Auto) 18.8 L (20-44) % [place] % (Auto) 18.8 H (0.0-11.0) % Eos % (Auto) 2.0 (0.0-7.0) % Baso % (Auto) 0.5 (0.0-3.0) % Neut # (Auto) 3.59 (1.7-7.0) K/uL Lymph # (Auto) 1.20 (0.90-2.90) K/uL [place] # (Auto) 1.20 H (0.00-0.90) K/UL Eos # (Auto) 0.12 (0.00-0.50) K/uL Baso # (Auto) 0.03 (0.00-0.30) K/uL Abs Immat Gran (auto) 0.08 (0.00-0.30) K/uL Imm/Tot Granulo (auto) 1.3 % INR 1.54 H (0.91-1.10) Sodium 129 L (135-149) mmol/L Potassium 3.5 L (3.6-5.1) mmol/L Chloride 96 (96-114) mmol/L Carbon Dioxide 25 (20-32) mmol/L BUN 14 (7-30) mg/dL Creatinine 1.1 (0.5-1.5) mg/dL Estimated Creat Clear 55.49 Estimated GFR 66 ml/min Glucose 89 (60-115) mg/dL Calcium 9.4 (8.4-10.6) mg/dL Total Bilirubin 0.7 (0.1-1.5) mg/dL AST 65 H (12-35) U/L ALT 71 H (4-50) U/L Alkaline Phosphatase 75 (40-150) U/L Troponin I < 0.01 L (0.01-0.04) ng/mL Total Protein 7.0 (6.0-8.3) g/dL Albumin 4.0 (3.3-5.0) g/dL Discharge Plan Discharge Clinical Impression: Hyponatremia Patient Disposition: Home, Self-Care Condition: Stable Instructions: Hyponatremia (ED) Additional Instructions: Fluid restrict as discussed Increase Coumadin intake to 5 mg daily Follow-up Dr. Rodas on Thursday Activity Level: No Restrictions Discharge Diet: Regular Prescriptions: No Action hydrochlorothiazide 12.5 mg tablet 12.5 mg PO QAM Qty: 90 3RF amoxicillin-pot clavulanate 875-125 mg tablet 1 tab PO BID Qty: 13 0RF warfarin 5 mg tablet 5 mg PO QDAY Qty: 90 3RF Protocol: Dose Management Condition: Thursday Dose/Route: 2.5 mg Instruction: 0.5 x 5 mg tablets Condition: Thursday Dose/Route: 2.5 mg Instruction: 0.5 x 5 mg tablets Condition: Thursday Dose/Route: 2.5 mg Instruction: 0.5 x 5 mg tablets Condition: Thursday Dose/Route: 2.5 mg Instruction: 0.5 x 5 mg tablets Condition: Dose/Route: 2.5 mg Instruction: 0.5 x 5 mg tablets Condition: Thursday Dose/Route: 2.5 mg Instruction: 0.5 x 5 mg tablets Condition: Thursday Dose/Route: 2.5 mg Instruction: 0.5 x 5 mg tablets Protocol Text: Adjustment Start Date: Thursday01/05/23 INR Value: 2.9 INR Date: 01/05/23 Recheck Date: 02/04/23 amiodarone 200 mg tablet 200 mg PO BID Qty: 180 3RF tamsulosin 0.4 mg capsule 0.4 mg PO QDAY Qty: 90 3RF atorvastatin 40 mg tablet 40 mg PO QDAY Qty: 90 3RF metoprolol succinate 50 mg tablet extended release 24 hr 50 mg PO DAILY Qty: 90 3RF lisinopril 20 mg tablet 20 mg PO QDAY Qty: 90 3RF Follow Up/Referrals: Raudel Rodas MD [Primary Care Provider] - Stand Alone Forms: [facility]
[2023-03-13 22:38] LABS: Basophils Absolute Auto 0.03 K/uL (0.00-0.30); Basophils Percent Auto 0.5 % (0.0-3.0); Eosinophils Absolute Auto 0.12 K/uL (0.00-0.50); Hematocrit 36.9 % (37.0-53.0); Hemoglobin* 12.6 gm/dL (13.5-17.5); Immature Granulocytes Abs Auto 0.08 K/uL (0.00-0.30); Immature Granulocytes Pct Auto 1.3 %; Lymphocytes Percent Auto 18.8 % (20-44); Mean Corpuscular HGB Conc 34 gm/dL (32-36); Mean Corpuscular Hemoglobin 33 pg (26-34); Mean Corpuscular Volume 95 fL (80-100); Monocytes Percent Auto 18.8 % (0.0-11.0); Neutrophils Absolute Auto 3.59 K/uL (1.7-7.0); Neutrophils Percent Auto 58.6 % (42.0-72.0); Platelet Count* 197 K/uL (140-440); RDW Coefficient of Variation % 14.2 % (11.5-15.5); Red Blood Count 3.88 m/uL (4.30-5.90); White Blood Count* 6.12 K/uL (4.50-11.00)
[2023-03-13 22:41] LABS: Slide Review Reflex No
[2023-03-13 22:51] LABS: Chloride* 96 mmol/L (96-114)
[2023-03-13 22:52] LABS: Potassium* 3.5 mmol/L (3.6-5.1); Sodium* 129 mmol/L (135-149)
[2023-03-13 22:54] LABS: Aspartate Amino Transferase* 65 U/L (12-35); Bilirubin Total* 0.7 mg/dL (0.1-1.5); Carbon Dioxide* 25 mmol/L (20-32); Creatinine* 1.1 mg/dL (0.5-1.5); Est. Creatinine Clearance* 55.49; Estimated Glomerular Filt Rate 66 ml/min; INR 1.54 (0.91-1.10); Prothrombin Time 19.3 Seconds
[2023-03-13 22:55] LABS: Alanine Aminotransferase* 71 U/L (4-50); Alkaline Phosphatase* 75 U/L (40-150); Blood Urea Nitrogen* 14 mg/dL (7-30); Calcium* 9.4 mg/dL (8.4-10.6); Glucose* 89 mg/dL (60-115)
[2023-03-13 23:07] LABS: Troponin I* < 0.01 ng/mL (0.01-0.04)
== END 2023-03-13 23:30 | disposition home or self-care (01) ==
PROVIDERS: Emergency Provider Internal Medicine; PCP Internal Medicine
DX: E87.1 Hypo-osmolality and hyponatremia (principal)
CPT/HCPCS: 36415; 71045; 80053; 84484; 85025; 85610; 93005; 99283; 99285

== ENCOUNTER 2023-03-17 13:55 | Outpatient (CLI) | payer MEDICARE, BC, SELFPAY | END 2023-03-17 13:56 | disposition home or self-care (01) | LOC: NFLDREF 13:57 | PROVIDERS: PCP Internal Medicine; Visit Provider Internal Medicine | DX: E87.1 Hypo-osmolality and hyponatremia (principal) | CPT/HCPCS: 80048 ==

== ENCOUNTER 2023-06-17 15:19 | Outpatient (CLI) | payer MEDICARE, BC, SELFPAY | END 2023-06-17 15:20 | disposition home or self-care (01) | PROVIDERS: PCP Internal Medicine; Visit Provider Internal Medicine | DX: R53.83 Other fatigue (principal); E87.1 Hypo-osmolality and hyponatremia; E78.5 Hyperlipidemia, unspecified; I10 Essential (primary) hypertension; I48.91 Unspecified atrial fibrillation; Z79.01 Long term (current) use of anticoagulants; Z51.81 Encounter for therapeutic drug level monitoring | CPT/HCPCS: 80053; 84439; 84443 ==

== ENCOUNTER 2023-12-28 13:45 | Outpatient (CLI) | payer MEDICARE, BC, SELFPAY ==
--- OUTSIDE RECORDS SUMMARY | 2023-12-28 13:47 | XMS_ITS ---
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 Procedure Estimated Blood Loss Check Surgery Details section. Procedure Findings Check Surgery Details section. Procedure Specimens Taken Check Surgery Details section.
--- OUTSIDE RECORDS SUMMARY | 2023-12-28 13:47 | XMS_ITS | Clinical Summary ---
Author Name Unknown Organization [facility] Address [place], [place] [address] Care Team Providers Care [employer] Basic Name Role Phone Jack Fuller MD Primary Care Provider [phone] [facility] [place], [place] Unavailable [phone] Allergies Active Allergy Reactions Criticality Noted Date Comments Cephalosporins *Unknown 06/08/2020 Medications Medication Sig Dispensed Refills Start Date End Date Status atorvastatin (LIPITOR) 40 mg tablet Take 40 mg by mouth once daily. Active tamsulosin (FLOMAX) 0.4 mg capsule Take 0.4 mg by mouth once daily after a meal. Active warfarin (COUMADIN) 5 mg tablet Take 5 mg by mouth once daily. Active multivitamins-mineral s-lutein (Multivitamin 50 Plus) tab tablet Take 1 Tablet by mouth once daily. Active zinc 50 mg tablet Take 50 mg by mouth every Thursday, Thursday and Thursday. Active lisinopriL (PRINIVIL; ZESTRIL) 20 mg tabletIndications:Ess ential hypertension Take 1 Tablet (20 mg) by mouth once daily. 30 Tablet 1 09/17/2022 Active metoprolol succinate (TOPROL XL) 25 mg Sustained-Release tabletIndications:Octavio tricular tachycardia (HC),Nonobstructive atherosclerosis of coronary artery Take 1 Tablet (25 mg) by mouth two times daily. 0 09/18/2022 Active acetaminophen (TYLENOL) 325 mg tabletIndications:S/P ICD (internal cardiac defibrillator) procedure Take 2 Tablets (650 mg) by mouth every 4 hours if needed for Pain (For mild pain.). Max acetaminophen dose: 4000mg in 24 hrs. 0 09/18/2022 Active amiodarone (CORDARONE) 200 mg tabletIndications:Octavio tricular tachycardia (HC) Take 1 Tablet (200 mg) by mouth once daily. 90 Tablet 3 01/14/2023 Active Active Problems Problem Noted Date Diagnosed Date Nonobstructive atherosclerosis of coronary arter y 09/16/2022 Essential hypertension 09/16/2022 Hyperlipidemia LDL goal <70 09/16/2022 Ventricular tachycardia 09/13/2022 Chronic atrial fibrillation 02/05/2017 Family History Medical History Relation Name Comments No Known Problems Father No Known Problems Mother Relation Name Status Comments Father Mother Social History Tobacco Use Types Packs/Day Years Used Date Smoking Tobacco: Former Smokeless Tobacco: Never Tobacco Cessation:Counseling Given: Yes Alcohol Use Standard Drinks/Week Comments Yes 30 (1 standard drink = 0.6 oz pu re alcohol) Social Connections Answer Date Recorded Frequency of Communication with Friends and Fami ly Not on file 10/17/2022 Financial Resource Strain Answer Date R ecorded Difficulty of Paying Living Expenses Not on file 2021 Difficulty of Paying Living Expenses Not on file 2021 Sex and Gender Information Value Date Recorded Sex Assigned at Not on file Gender Identity Not on file Sexual Orientation Not on file Obstetrics History Last Filed Vital Signs Vital Sign Reading Time Taken Comments Blood Pressure 170/82 09/18/2022 9:39 AM [employer] Pulse 71 09/18/2022 9:39 AM [employer] Temperature 36.4 ??C (97.5 ??F) 09/18/2022 1:22 AM CS T Respiratory Rate 12 09/18/2022 1:22 AM [employer] Oxygen Saturation 96% 09/18/2022 1:22 AM [employer] Inhaled Oxygen Concentration - - Weight 86 kg (189 lb 9.5 oz) 09/18/2022 6:00 AM [employer] Height 185.4 cm (6' 1) 09/13/2022 6:00 PM [employer] Body Mass Index 25.01 09/13/2022 6:00 PM [employer] Plan of Treatment Upcoming Encounters Date Type Department Care Team (Late st Contact Info) Description 01/05/2024 10:30 AM CDT Cardiac Device Check [facility] [place] [facility] [address] [place] [address] Health Maintenance Due Date Last Done Comments Pneumococcal series for age 65+ (1 of 2 - PCV) 1943 Tdap 1948 Depression screening for age 12+ 1949 BMI (ht and wt on same day) for age 18+ 1955 Tetanus booster 1957 Zoster (shingles) series for age 50+ (1 of 2) 1987 Medicare Wellness for age 65+ 2002 Influenza for age 65+ 04/24/2024 COVID-19 vaccine series Completed 06/17/20, 07/31/2022, 01/10/2022, Additional history exists Advance Directives * Full Code (Latest Code Status on File) Date Activated Date Inactivated Comments 09/14/2022 10:09 AM 09/18/2022 5:46 PM Question Answer Comments Code Status Discussion: Reviewed Preferences * Full Code Date Activated Date Inactivated Comments 09/13/2022 5:37 PM 09/14/2022 10:09 AM Question Answer Comments Code Status Discussion: Unable to Assess Preferences, Provider to review later Care Teams Field [employer] Basic Relationship Specialty Start Date End Date Jack Fuller MD PCP - General 04/10/10 [facility], [address] [address] 09/18/22
--- OUTSIDE RECORDS SUMMARY | 2023-12-28 13:47 | XMS_ITS | Clinical Summary ---
Author Name Unknown Organization [facility] Address [address] [place] [address] Care Team Providers Care Lead Pl Sql Developer Name Role Phone Elsewhere, Pcp Primary Care Provider Unavailabl e Source Comments Patient records contain information from all sites at [facility]. For routine questions regarding patient records, call [phone] during business hours, M-F 8:00 AM - 5:00 PM Central Time. Record requests for emergency care only can be directed to [phone] at any time.[facility] Allergies Active Allergy Reactions Criticality Noted Date Comments Cephalothin Hives (Reselect Reaction) 0 Medications Medication Sig Dispensed Refills Start Date End Date Status acetaminophen (TYLENOL) 500 mg tablet Take 2 tablets by mouth every 6 (six) hours as needed. Pain. Take while on narcotic medication (Do not exceed 4000 mg of acetaminophen in 24 hours) 11/12/[address] tablet Take 1 tablet by mouth daily. Hold while on twice daily aspirin 11/12/2016 Active clindamycin (CLEOCIN) 300 mg capsule Take 2 capsules by mouth once. Take one hour prior to your dental procedure 01/13/2017 Active docusate sodium (COLACE) 100 mg capsule Take 1 capsule by mouth 2 (two) times a day as needed. (or other over the counter stool softener) while taking narcotic or until bowel movements normal 11/12/2016 Active diphenhydrAMINE (BENADRYL) 2 % cream Apply 1 each topically daily. To groin area. 11/12/2016 Active ibuprofen (ADVIL,MOTRIN) 200 mg tablet Take 1-2 tablets by mouth at bedtime as needed. Pain. Hold while on twice daily aspirin therapy postoperatively. 11/12/2016 Active lisinopril (PRINIVIL,ZESTRIL) 10 mg tablet Take 1 tablet by mouth 2 (two) times a day. 10/20/2016 Active multivitamin tablet Take 1 tablet by mouth daily. 11/04/2013 Active metoprolol succinate (TOPROL-XL) 25 mg 24 hr tablet Take 3 tablets by mouth daily. 75mg daily 11/01/2010 Active oxyCODONE (ROXICODONE) 5 mg immediate release tablet Take 1-2 tablets by mouth every 4 (four) hours as needed. 1 tab for pain < 5, 2 tabs for greater 11/12/2016 Active sotalol (BETAPACE) 120 mg tablet Take 1 tablet by mouth 2 (two) times a day. 10/31/2010 Active tamsulosin (FLOMAX) 0.4 mg 24 hr capsule Take 1 capsule by mouth daily. 10/20/2016 Active traMADol (ULTRAM) 50 mg tablet Take 1-2 tablets by mouth every 4 (four) hours as needed. Pain; do not exceed 8 tablets per day. 11/12/2016 Active zinc sulfate (ZINCATE) 220 (50) mg capsule Take 1 capsule by mouth as directed. Takes Thursday, Thursday, and Thursday for macular degeneration 11/12/2016 Active warfarin (COUMADIN) 5 mg tablet Take 5 mg by mouth daily. 01/27/2022 Active prednisoLONE acetate (PRED FORTE) 1 % ophthalmic suspension daily. Active tobramycin-dexameth asone (TOBRADEX) 0.3-0.1 % ophthalmic suspension daily. Active metroNIDAZOLE (METROLOTION) 0.75 % lotion metronidazole 0.75 % lotion APPLY A THIN LAYER TO THE AFFECTED AREA(S) BY TOPICAL ROUTE 2 TIMES PER DAY IN THE MORNING AND EVENING Active bromfenac (Prolensa) 0.07 % ophthalmic solution as needed. Activ e hydroCHLOROthiazide (HYDRODIURIL) 25 mg tablet Take 25 mg by mouth daily. 12/20/2021 Active atorvastatin (LIPITOR) 40 mg tablet Take 40 mg by mouth daily. 11/27/2021 Active Active Problems Problem Noted Date Diagnosed Date Atrial Fibrillation Paroxysmal 11/11/2016 Hypertension 05/15/2010 Immunizations Name Administration Dates Next Due HZV (ZOSTAVAX) 08/24/2009 Influenza Split 06/24/2013 PCV13 12/28/2014 Tdap 02/14/2011 influenza high dose (65 years or older) (PF) Social History Tobacco Use Types Packs/Day Years Used Date Smoking Tobacco: Former Cigarettes 1 30 1 945 - 1975 Smokeless Tobacco: Never Tobacco Cessation:Counseling Given: Not Answered Nutrition Answer Date Recorded Nutrition: EVOO Fat Source Unknown 10/26 Nutrition: Servings of Fruits/Vegetables per Day Not on file 10/26/2020 Dental Answer Date Recorded Dental: Regular Dentist Unknown 10/27/19 Sex and Gender Information Value Date Recorded Sex Assigned at Male 05/18/2018 9:18 AM CDT Gender Identity Male 05/18/2018 9:18 AM CDT Sexual Orientation Straight 05/18/2018 9: 18 AM CDT Last Filed Vital Signs Vital Sign Reading Time Taken Comments Blood Pressure 159/77 05/20/2022 9:10 AM CDT Pulse 68 05/20/2022 9:10 AM CDT Temperature - - Respiratory Rate 18 11/14/2016 10:1 4 AM CDT Value from [facility]. Oxygen Saturation - - Inhaled Oxygen Concentration - - Weight 88.2 kg (194 lb 7.1 oz) 11/12/2016 11:24 AM CDT Vital sign result from CDM. Height 183.1 cm (6' 0.09) 11/12/2016 1 1:24 AM CDT Vital sign result from CDM. Body Mass Index 26.31 11/12/2016 11:24 AM CDT Plan of Treatment Health Maintenance Due Date Last Done Comments Pneumococcal vaccine (65+ ye ars) (2 of 2 - PPSV23 or PCV20) 12/29/2015 12/28/2014 Depression Screening (Annual PHQ-2) 08/24/2023 Fall Risk Screen (Annual) 08/24/2023 Creatinine Level (Kidney Fun ction Test) 09/18/2023 09/18/2022, 09/17/2022, 09/16/2022, Additional history exists Potassium Level 09/18/2023 09/18/2022, 08/25, 09/16/2022, Additional history exists Sodium Level 09/18/2023 09/18/2022, 08/25, 09/16/2022, Additional history exists COVID-19 Vaccine (7 - 2022-2 4 season) 2023 06/17/2023, 07/31/2022, 01/10/2022, Additional history exists DTaP,Tdap,and Td Vaccines (3 - Td or Tdap) 11/08/2031 11/07/2021, 02/14/2011 Zoster Vaccines Completed 11/07/2021, 07/24, 08/24/2009 Influenza Vaccine Completed 06/17/2023, , 07/10/2021, Additional history exists Medical Devices Implanted Type Area Steam Heating Installer Device Identifier Shelf Expiration Date Model / Serial / Lot Screw Canc. 6.5mm X 45mm Low Profile - Crump [id number] Implanted:Qty: 1 on 11/12/2016 Hardware e.g. pins/screw s/rods Other/Legacy - See Implant Description Description:Device Manufactu [employer]. Device Status Text - [id number]. Hemispherical Cluster 3 Hole Shell 56mm - Crump [id number] Implanted:Qty: 1 on 11/12/2016 Hip Implant Other/Legacy - See Implant Description Other/Legacy - See Implant Description Description:Device Manufactu [employer]. Body Location - Other. Right. Device Status Text - HIP [id number]. Stem P2 Porous Coated Size 15 - Crump [id number] Implanted:Qty: 1 on 11/12/2016 Hip Implant Other/Legacy - See Implant Description Other/Legacy - See Implant Description Description:Device Manufactu [employer]. Body Location - Other. Right. Device Status Text - [id number] [id number]. Liner-Acetab E-Plus 36mm Mp9 - Crump [id number] Implanted:Qty: 1 on 11/12/2016 Hip Implant Other/Legacy - See Implant Description Other/Legacy - See Implant Description Description:Device Manufactu [employer]. Body Location - Other. Right. Device Status Text - [id number] [id number]. Conversions - Default Historical Implant Device Implanted:2016 (Quantity not on file) Hip Implant Left: Hip Description:Body Location - Hip L. Device Status Text - Hip Imp. Biolox Delta Ceramic Head 36 Neutral - Crump [id number] Implanted:Qty: 1 on 11/12/2016 Hip Implant Other/Legacy - See Implant Description Other/Legacy - See Implant Description Description:Device Manufactu rer - [employer]. Body Location - Other. Right. Device Status Text - HIP [id number]. Procedures Procedure Name Priority Date/Time Associated Diagnosis Comments EXTI COMPREHENSIVE METABOLIC PANEL, S/P Routine 09/18/2022 6:28 AM ASSET MANAGEMENT ANALYST from Last 3 Months or Most Recently Relevant to Health Maintenance Advance Directives For more information, please contact: [phone] Documents on File Type Date Recorded Patient Science Job Titles Expl anation Advance Directives 11/12/2016 12:00 AM Leg acy document. See document viewer. Care Teams Lead Pl Sql Developer Relationship Specialty Start Date End Date Elsewhere, Pcp PCP - General Internal Medicine 02/14/22 Raudel Rodas MD [address] [place] [address] External Primary Care Physician 08/24/16
--- OUTSIDE RECORDS SUMMARY | 2023-12-28 13:47 | XMS_ITS | Referral Summary ---
Author Name Unknown Organization [facility] Address [address] [place] [address] Care Team Providers Care Manager Willow Name Role Phone Elsewhere, Pcp Primary Care Provider Unavailabl e Source Comments Patient records contain information from all sites at [facility]. For routine questions regarding patient records, call [phone] during business hours, M-F 8:00 AM - 5:00 PM Central Time. Record requests for emergency care only can be directed to [phone] at any time.[facility] Allergies Active Allergy Reactions Criticality Noted Date [...] Former Cigarettes 1 30 1 945 - 1974 Smokeless Tobacco: Never Tobacco Cessation:Counseling Given: Not [...] 11/14/2016 10:1 4 AM CDT Value from [facility]. Oxygen Saturation - - Inhaled Oxygen Concentration - - Weight 88.2 kg (194 lb 7.1 oz) 11/12/2016 11:24 AM CDT Vital sign result from CDM. Height 183.1 cm (6' 0.09) 11/12/2016 1 1:24 AM CDT Vital sign result from CDM. Body Mass Index 26.31 11/12/2016 11:24 AM CDT Plan of Treatment Not on file Medical Devices Implanted Type Area Nut Cracker Device Identifier Shelf Expiration Date Model / Serial / Lot Screw Canc. 6.5mm X 45mm Low Profile - Crump [id number] Implanted:Qty: 1 on 11/12/2016 Hardware e.g. pins/screw s/rods Other/Legacy - See Implant Description Description:Device Manufactu [employer]. Device Status Text - [id number]. Hemispherical Cluster 3 Hole Shell 56mm - Crump [id number] Implanted:Qty: 1 on 11/12/2016 Hip Implant Other/Legacy - See Implant Description Other/Legacy - See Implant Description Description:Device Manufactu [employer]. Body Location - Other. Right. Device Status Text - HIP [id number]. Stem P2 Porous Coated Size 15 - Crump [id number] Implanted:Qty: 1 on 11/12/2016 Hip Implant Other/Legacy - See Implant Description Other/Legacy - See Implant Description Description:Device Manufactu [employer]. Body Location - Other. Right. Device Status Text - [id number] [id number]. Liner-Acetab E-Plus 36mm Mp9 - Crump [id number] Implanted:Qty: 1 on 11/12/2016 Hip Implant Other/Legacy - See Implant Description Other/Legacy - See Implant Description Description:Device Manufactu [employer]. Body Location - Other. Right. Device Status Text - HIP [id number]. Conversions - Default Historical Implant Device Implanted:2016 (Quantity not on file) Hip Implant Left: Hip Description:Body Location - Hip L. Device Status Text - Hip Imp. Biolox Delta Ceramic Head 36 Neutral - Crump [id number] Implanted:Qty: 1 on 11/12/2016 Hip Implant Other/Legacy - See Implant Description Other/Legacy - See Implant Description Description:Device Manufactu [employer]. Body Location - Other. Right. Device Status Text - HIP [id number]. Procedures Procedure Name Priority Date/Time Associated Diagnosis Comments EXTI COMPREHENSIVE METABOLIC PANEL, S/P Routine 09/18/2022 6:28 AM STRAIGHTEDGE MAN from Last 3 Months or Most Recently Relevant to Health Maintenance Advance Directives For more information, please contact: [phone] Documents on File Type Date Recorded Patient Accounts Payable Specialist Expl anation Advance Directives 11/12/2016 12:00 AM Leg acy document. See document viewer. Care Teams Manager Willow Relationship Specialty Start Date End Date Elsewhere, Pcp PCP - General Internal Medicine 02/14/22 Raudel Rodas MD [address] [place] [address] External Primary Care Physician 08/24/16
== END 2023-12-28 13:46 | disposition home or self-care (01) ==
LOC: NFLDREF 13:46
PROVIDERS: PCP Internal Medicine; Visit Provider Internal Medicine
DX: N40.0 Benign prostatic hyperplasia without lower urinary tract symptoms (principal); Z12.5 Encounter for screening for malignant neoplasm of prostate
CPT/HCPCS: 87086; G0103

== ENCOUNTER 2024-06-06 09:20 | Outpatient (CLI) | payer MEDICARE, BC, SELFPAY ==
--- OUTSIDE RECORDS SUMMARY | 2024-06-06 11:48 | XMS_ITS | Data Portability ---
Author Organization [place] [facility] Address [address] [place] [address] Care Team Providers Care Pipe Organ Technician Name Role Phone JOSELUIS TO Primary Care Provider Assessment Encounter Date Assessment Date Assessment LastModified by Organization Details LastModified Time 01/19/2024 01/19/2024 88 y/o male, hx of early bph sx.s. SLOW STREAM, NOCTURIA X 1-3. STARTED ON FINASTERIDE AND HE FEELS IT HAS HELPED.ÁNGEL 40 G. SMOOTH. PREVIOUS PSA NORMAL. REVIEWED RECORDS, LABS FROM PRIMARY. ORDERED, REVIEWED U/A, PVR PLAN CONT FINASTERIDE 5 MG DAY. NEW SCRIPT. RTC 6 MO TO REASSESS. [email or web address] Not available 01/19/2024 11:58:27 Plan of Treatment Reminders Order Date Submit Date Provider Last Modified By Organization Details Last Modified Time Details Appointments ESTABLISH ED 10 2023 09:40A M Blaze Ortega MD Not available Not available Not available Lab urinalysi s, dipstick 2023 024 [facility], [address], [place], [address], 01/19/2024 10:49:02 Referral None recorded. Procedures None recorded. Surgeries None recorded. Imaging None recorded. Medication Orders finasteri de 5 mg tablet 2023 024 [facility], [address] [facility], [place], [address], 01/19/2024 11:01:17 Patient TargetsNo targets recorded. Patient InstructionsNo instructions recorded. Reason for Referral None Reported. Results Created Date Observation Date Name Description Value Unit Range Abnormal Flag Note LastModifiedBy Organization Detail LastModifiedTime 01/19/20 24 01/19/2024 urina lysis , dipst ick UROBILINOGEN 8.0 mg/dL Not Available [facility] [address], [place], [address], 01/19/2024 10:48:35 01/22/20 24 01/19/2024 bladd er scan (PROC ) No observ ation record ed. BARCODE Not Available 2023 15:25:47 Result Notes None recorded. Problems Name Problem SNOMED Code Status Onset Date Resolution Date Notes Provider Name and Address Organization Details Recorded Time Slowing of urinary stream 37032836 Active Blaze Ortega MD [address] [place] [address],[address], [address] , [facility] 11:58:41 Nocturia 841403764 Active 024 Blaze Ortega MD [address] [place] [address],[address], [address] , [facility] 11:58:48 Problem Notes None recorded. Procedures Surgical History Date Name Laterality Status Provider Name and Address Organization Details Recorded Time 4 Bladder Scan completed Blaze Ortega MD [address] [place] [address],[address], [address], [facility] 01/19/2024 10:50:08 8 colonoscopy completed Blaze Ortega MD [address] [place] [address],[address], [address], [facility] 01/19/2024 10:48:58 Imaging Results Imaging Date Name Status LastModified by Organiz ation Details LastModified Time 01/19/2024 bladder scan (PROC) completed BARCODE Information not available 01/22/2024 15:25:47 Procedure Notes None recorded. Medical Equipment None Reported. Allergies Allergen ID Allergen Name Allergen Category Reaction Reaction Severity Criticality Documentation Date Start Date Code Code System Note Provider Name and Address Organization Details Recorded Time 448939 Medicinal product containin g cephalosp anderson and acting as antibacte rial agent (product) medicatio n Not available Not available Not available 01/19/2024 00639 9009 SNOMED Blaze Ortega MD [address] [place] [address],[address] [place] [address], [phone], [facility] 10:47:39 Medications Name Sig Start Date Stop Date Status Note LastModified by Organization Details LastModified Time atorvastatin 40 mg tablet active Not Available Not Available Not Available amiodarone 200 mg tablet active Not Available Not Available No t Available metoprolol succinate ER 50 mg tablet,extende d release 24 hr active Not Available Not Available Not Available lisinopril 20 mg tablet active Not Available Not Available No t Available tamsulosin 0.4 mg capsule active Not Available Not Available N ot Available warfarin 5 mg tablet active Not Available Not Available Not Available finasteride 5 mg tablet Take 1 tablet every day by oral route as directed for 90 days. active Not Available Not Available No t Available hydrochlorothi azide 12.5 mg tablet active Not Available Not Available Not Available Vitals Date Recorded Body height Body mass index (BMI) Body weight Provider Name and Address Organization Details Last Updated DateTime 01/19/2024 182.88 cm 24.4 kg/m2 18154.63 g Blaze Ortega MD [address] [place] [address],[address] [place] [address], [address] 01/19/2024 10:47:19 Social History Question Answer Notes LastModified by Organizat ion Details LastModified Time Tobacco Smoking Status Former Smoker Blaze Ortega MD [address] [place] [address],[address], [address], [facility] 01/19/2024 10:48:49 When Did You Quit Smoking? 16+yearssinc elastcigaret te Information not available 01/19/2024 What Was The Date Of Your Most Recent Tobacco Screening? 01/19/2024 Information not available 01/19/2024 Sex: Unknown Functional Status None recorded. Mental Status None recorded. Family History Relationship Description Onset Age of this Age Resolved Age Notes LastModified by Organization Details LastModified Time Sister Family history of breast cancer [email or web address] Not available 2023 10:48:34 Father Family history of cancer of colon [email or web address] Not available 2023 10:48:38 Medical History Condition Response Diabetes N Heart Disease Y High Blood Pressure Y High Cholesterol Y Past Encounters Encounter ID Performer Location Encounter Start Date Encounter Closed Date Diagnosis/Indication Diagnosis SNOMED-CT Code Diagnosis ICD10 Code [id number] Blaze Ortega MD [facility] [address] [place] [facility] [address] [facility] [place] [address] 01/19/2024 10:32:22 01/20/2024 10:44:58 Benign prostatic hyperplasia with outflow obstruction 339647555 N40.1 Slowing of urinary stream 73985625 R39.12 Nocturia 356216233 R35.1 Health Concerns Section Related Observation LastModified by Organization Detai ls LastModified Time None Recorded Concern Status LastModified by Organization Details LastModified Time None Recorded Advance Directives Directive None Recorded Payers Encounter Date Sequence Insurance Name Policy Number Policy Anne Covered Member ID Anne Member ID Guarantor Name 01/19/2024 1 [place] [employer] Edd Puente [id number] Edd Puente 01/19/2024 2 [place] [id number] Edd Puente [id number] Edd Puente Notes Date Note Type Note Provider Name and Address Organization Details Recorded Time 01/19/2024 text/html HPI Notes: 88 YO MALE NEW PT HERE TODAY FOR SLOW STREAM. NOT DIABETIC. STARTED FINASTERIDE 2 WEEKS AGO. PVR TODAY 8 ML. u/a neg. Blaze Ortega MD [address] [facility],[address], [place], [address], [facility] 01/19/2024 11:59:26
--- OUTSIDE RECORDS SUMMARY | 2024-06-06 11:48 | XMS_ITS | Clinical Summary ---
Author Organization [facility] Address [place], [place] [address] Care Team Providers Care Polystyrene Molding Machine Tender Name Role Phone Jack Fuller MD Primary Care Provider [phone] [facility] Unavailable [phone] Allergies Active Allergy Reactions Criticality Noted Date [...] mg) by mouth once daily. 90 Tablet 1 03/18/2024 Active Active Problems Problem Noted Date Diagnosed Date Nonobstructive atherosclerosis of coronary arter y 09/16/2022 Essential hypertension 09/16/2022 Hyperlipidemia LDL goal <70 09/16/2022 Ventricular tachycardia 09/13/2022 Chronic atrial fibrillation 02/05/2017 Encounters Date Type Department Care Team Description 03/18/[address] [place] [phone] Davide Ochoa MD Refill Request from Last 3 Months Family History Medical History Relation Name Comments [...] Comments Blood Pressure 170/82 09/18/2022 9:39 AM PLUMBING DESIGNER Pulse 71 09/18/2022 9:39 AM PLUMBING DESIGNER Temperature 36.4 ??C (97.5 ??F) 09/18/2022 1:22 AM CS T Respiratory Rate 12 09/18/2022 1:22 AM PLUMBING DESIGNER Oxygen Saturation 96% 09/18/2022 1:22 AM PLUMBING DESIGNER Inhaled Oxygen Concentration - - Weight 86 kg (189 lb 9.5 oz) 09/18/2022 6:00 AM PLUMBING DESIGNER Height 185.4 cm (6' 1) 09/13/2022 6:00 PM PLUMBING DESIGNER Body Mass Index 25.01 09/13/2022 6:00 PM PLUMBING DESIGNER Plan of Treatment Upcoming Encounters Date Type Department Care Team (Late st Contact Info) Description 09/06/2024 1:00 PM PLUMBING DESIGNER Cardiac Device Check [facility] [address] [place] [phone] Health Maintenance Due Date Last Done Comments Pneumococcal series for age 65+ (1 of 2 - PCV) 1943 Tdap 1948 Depression screening for age 12+ 1949 BMI (ht and wt on same day) for age 18+ 1955 Tetanus booster 1957 Zoster (shingles) series for age 50+ (1 of 2) 1987 Medicare Wellness for age 65+ 2002 RSV vaccine for adults or (1 - 1-dose 75+ series) 2012 COVID-19 vaccine series ( season) 2024 06/17/2023, 07/31/2022, 01/10/2022, Additional history exists Influenza for age 65+ 04/24/2024 Advance Directives * Full Code (Latest Code Status on File) Date Activated Date Inactivated Comments 09/14/2022 10:09 AM 09/18/2022 5:46 PM Question Answer Comments Code Status Discussion: Reviewed Preferences * Full Code Date Activated Date Inactivated Comments 09/13/2022 5:37 PM 09/14/2022 10:09 AM Question Answer Comments Code Status Discussion: Unable to Assess Preferences, Provider to review later Care Teams Polystyrene Molding Machine Tender Relationship Specialty Start Date End Date Jack Fuller MD PCP - General 04/10/10 [facility], [address] [address] 09/18/22
== END 2024-06-06 09:21 | disposition home or self-care (01) ==
LOC: NFLDREF 11:46
PROVIDERS: PCP Internal Medicine; Referring Provider Internal Medicine; Visit Provider Internal Medicine
DX: N40.0 Benign prostatic hyperplasia without lower urinary tract symptoms (principal); E78.5 Hyperlipidemia, unspecified; I10 Essential (primary) hypertension; Z79.01 Long term (current) use of anticoagulants; Z12.5 Encounter for screening for malignant neoplasm of prostate
CPT/HCPCS: 80053; 80061; G0103

== ENCOUNTER 2025-01-23 10:34 | Outpatient (CLI) | payer MEDICARE, BC, SELFPAY | END 2025-01-23 10:35 | disposition home or self-care (01) | LOC: NFLDREF 01-24 09:43 | PROVIDERS: PCP Internal Medicine; Referring Provider Internal Medicine; Visit Provider Internal Medicine | DX: I48.91 Unspecified atrial fibrillation (principal) | CPT/HCPCS: 85610 ==

== ENCOUNTER 2025-06-08 10:56 | Outpatient (CLI) | payer MEDICARE, BC, SELFPAY | END 2025-06-08 10:57 | disposition home or self-care (01) | LOC: NFLDREF 06-23 02:06 | PROVIDERS: PCP Internal Medicine; Referring Provider Internal Medicine; Visit Provider Internal Medicine | DX: I48.91 Unspecified atrial fibrillation (principal); E78.5 Hyperlipidemia, unspecified; N40.0 Benign prostatic hyperplasia without lower urinary tract symptoms; Z12.5 Encounter for screening for malignant neoplasm of prostate | CPT/HCPCS: 80053; 80061; G0103 ==